=== PATIENT | female | born 1970 | race Hispanic/Latino ===

== ENCOUNTER 2017-09-06 12:36 | Inpatient (IN) | payer BC ==
[~2017-09-06] VITALS: Ht 157.5 cm; Wt 69.1 kg
[2017-09-06] MEDS ORDERED: SODIUM CHLORIDE 0.9% 1000ML 1,000 ML IV STA (12:39)
[2017-09-06] MEDS ORDERED: ONDANSETRON HCL INJ 2 MG/ML VIAL IV STA ×2 (12:39→12:58)
[2017-09-06] MEDS ORDERED: MORPHINE SULFATE 4 MG/ML SYR IV STA (12:39)
[2017-09-06] MEDS ORDERED: ASPIRIN 81 MG CHEW TAB PO ONE (12:45)
[2017-09-06] MEDS ORDERED: DIATRIZOATE MEGL/DIATRIZOA SOD 30 ML BTL PO ONE (12:55)
[2017-09-06] MEDS ORDERED: MORPHINE SULFATE 2 MG/ML SYR ONE (13:05)
[2017-09-06] MEDS ORDERED: DICYCLOMINE HCL 20 MG/2 ML VIAL IM ONE (13:15)
[2017-09-06 13:18] LABS: BASOPHILS % 0.2 % (0.0-1.0); EOSINOPHILS % 0.1 % (0.0-6.0); HEMATOCRIT 41.7 % (34.2-44.1); HEMOGLOBIN 13.2 g/dL (12.0-16.0); LYMPHOCYTES # (AUTO) 1.6 (1.0-3.2); LYMPHOCYTES % 9.9 % (18.0-39.1); MEAN CORPUSCULAR HEMOGLOBIN 25.8 pg (28-32); MEAN CORPUSCULAR HGB CONC 31.7 g/dL (31-35); MEAN CORPUSCULAR VOLUME 81.6 fL (81-99); MONOCYTES # (AUTO) 0.4 (0.2-0.8); MONOCYTES % 2.4 % (4.4-11.3); NEUTROPHILS # (AUTO) 14.1 (2.1-6.9); NEUTROPHILS % 87.1 % (38.7-80.0); PLATELET COUNT 582 x10e3/uL (140-360); RED BLOOD COUNT 5.11 x10e6/uL (3.6-5.1)
[2017-09-06 13:35] LABS: ALANINE AMINOTRANSFERASE 19 IU/L (0-55); ALBUMIN 4.3 g/dL (3.5-5.0); ALBUMIN/GLOBULIN RATIO 0.8 (0.8-2.0); ALKALINE PHOSPHATASE 102 IU/L (40-150); ANION GAP 22.4 mmol/L (8-16); BLOOD UREA NITROGEN 13 mg/dL (7-26); BUN/CREATININE RATIO 16 (6-25); CALCIUM 10.2 mg/dL (8.4-10.2); CARBON DIOXIDE 22 mmol/L (22-29); CHLORIDE 101 mmol/L (98-107); CREATINE KINASE 34 IU/L (29-168); CREATININE, SERUM 0.83 mg/dL (0.57-1.11); EST GLOMERULAR FILTRATION RATE > 60 ML/MIN (60-); GLUCOSE 157 mg/dL (74-118); POTASSIUM 3.4 mmol/L (3.5-5.1); SODIUM 142 mmol/L (136-145)
[2017-09-06 13:54] LABS: THYROID STIMULATING HORMONE 2.077 uIU/mL (0.350-4.940)
--- NOTE | 2017-09-06 14:25 | Diagnostic Imaging Report ---
PROCEDURE:CT ABDOMEN AND PELVIS WITH CONTRAST COMPARISON:None. INDICATIONS:ABDOMEN PAIN TECHNIQUE: Routine protocol Volumetric CT abdomen and pelvis after administration of 100 mL Omnipaque 300 contrast and positive enteric contrast. Multiplanar reformatted images. DLP: 541 FINDINGS: Clear lung bases. No pleural effusions. Normal heart size. Liver: Normal Gallbladder: Cholecystectomy Pancreas: Normal Spleen: Normal Adrenal glands: Normal Kidneys: Fjl-nnadp-lg-characterize subcentimeter hypodensities bilaterally. Otherwise, normal. Urinary bladder: Normal Uterus and adnexa: Hysterectomy Bowel: Distention of the large bowel up to the mid sigmoid colon; normal small bowel diameter.. 7 cm long mass at the mid sigmoid colon transition point (image 68, series 2). Distal sigmoid colon is decompressed. Peritoneum: Normal Vasculature: Normal Lymph nodes: Subcentimeter nodes at the sigmoid mesentery (image 63, series 2. Otherwise, no pelvic, mesenteric or retroperitoneal lymphadenopathy. Skeleton: Intact. No lytic or blastic lesions. Soft tissues: Normal. CONCLUSION: 1. 7 cm long mass in the mid sigmoid colon suspicious for primary colon malignancy. 2. Distention of the large bowel to the level of the mass suspicious for at least partial obstruction. 3. Subcentimeter lymph nodes along the sigmoid mesentery may represent local sierra metastasis. However, no evidence of distal metastasis. Dictated by: Ramu Kamara M.D. on 09/06/2017 at 14:34 Electronically approved by: Ramu Kamara M.D. on 09/06/2017 at 14:34
--- NOTE | 2017-09-06 14:25 | Diagnostic Imaging Report ---
PROCEDURE:CHEST SINGLE (NOT PORTABLE) TECHNIQUE:Portable AP chest INDICATION:Vomiting; diarrhea COMPARISON:None. FINDINGS: Lungs are clear and symmetrically inflated. No pleural effusions. Normal heart size, mediastinal contour and pulmonary vasculature. Cholecystectomy clips. Intact skeleton. CONCLUSION: Normal chest. Dictated by: Ramu Kamara M.D. on 09/06/2017 at 14:34 Electronically approved by: Ramu Kamara M.D. on 09/06/2017 at 14:34
[2017-09-06 15:33] LABS: BILIRUBIN,URINE NEGATIVE (NEGATIVE); KETONES,URINE 3+ (NEGATIVE); LEUKOCYTE ESTERASE ,URINE 1+ (NEGATIVE); NITRITE,URINE NEGATIVE (NEGATIVE); PROTEIN,URINE DIPSTICK NEGATIVE (NEGATIVE); URINE UROBILINOGEN 0.2 mg/dL (0.2 - 1)
[2017-09-06 15:41] LABS: CLARITY,URINE CLEAR (CLEAR); COLOR,URINE STRAW (YELLOW)
[2017-09-06 15:47] LABS: EPITHELIAL CELLS,URINE MANY /LPF
[2017-09-06 15:48] LABS: RBC,URINE 0-5 /HPF (0-5); WBC,URINE (MAN) 0-5 /HPF (0-5)
--- OUTSIDE RECORDS SUMMARY | 2017-09-06 16:24 | XMS REPORT ---
Author Author [facility] Address Unknown Phone Unavailable Care Team Providers Care Housefellow Name Role Phone QUINTON MATTHEWS Unavailable Unavailable Problems This patient has no known problems. Allergies, Adverse Reactions, Alerts This patient has no known allergies or adverse reactions. Medications This patient has no known medications. Results Test Description Test Time Test Comments Text Results Atomic Results Result Comments CT ABDOMEN/PELVIS W [place] [address] Patient Name: AILYN GAMEZ MR #: [id number] : 1970 Age/Sex: 46/F Req #: [id number] Adm Physician: Ordered by: PATRICIA CHEN PERFORMANCE MANAGER Report #: [id number] Location: ER Room/Bed: Procedure: [id number] CT/CT ABDOMEN/PELVIS W Exam Date: 09/06/17 Exam Time: 1400 REPORT STATUS: Signed PROCEDURE: CT ABDOMEN AND PELVIS WITH CONTRAST COMPARISON: None. INDICATIONS: ABDOMEN PAIN TECHNIQUE: Routine protocol Volumetric CT abdomen and pelvis after administration of 100 mL Omnipaque 300 contrast and positive enteric contrast. Multiplanar reformatted images. DLP: 541 FINDINGS: Clear lung bases. No pleural effusions. Normal heart size. Liver: Normal Gallbladder: Cholecystectomy Pancreas: Normal Spleen: Normal Adrenal glands: Normal Kidneys: Pmi-raqvd-lz-characterize subcentimeter hypodensities bilaterally. Otherwise, normal. Urinary bladder: Normal Uterus and adnexa: Hysterectomy Bowel: Distention of the large bowel up to the mid sigmoid colon; normal small bowel diameter.. 7 cm long mass at the mid sigmoid colon transition point (image 68, series 2). Distal sigmoid colon is decompressed. Peritoneum: Normal Vasculature: Normal Lymph nodes: Subcentimeter nodes at the sigmoid mesentery (image 63, series 2. Otherwise, no pelvic, mesenteric or retroperitoneal lymphadenopathy. Skeleton: Intact. No lytic or blastic lesions. Soft tissues: Normal. CONCLUSION: 1. 7 cm long mass in the mid sigmoid colon suspicious for primary colon malignancy. 2. Distention of the large bowel to the level of the mass suspicious for at least partial obstruction. 3. Subcentimeter lymph nodes along the sigmoid mesentery may represent local sierra metastasis. However, no evidence of distal metastasis. Dictated by: Keira Kamara M.D. on 09/06/2017 at 14:34 Electronically approved by: Keira Kamara M.D. on 09/06/2017 at 14:34 Dictated By: KEIRA KAMARA MD 1434 Transcribed By: TAMAR on 09/06/17 1434 COPY TO: PATRICIA CHEN PERFORMANCE MANAGER CHEST SINGLE (NOT PORTABLE) [place] [address] Patient Name: AILYN GAMEZ MR #: [id number] : 1970 Age/Sex: 46/F Req #: [id number] Adm Physician: Ordered by: PATRICIA CHEN PERFORMANCE MANAGER Report #: [id number] Location: ER Room/Bed: Procedure: [id number] DX/CHEST SINGLE (NOT PORTABLE) Exam Date: 09/06/17 Exam Time: 1350 REPORT STATUS: Signed PROCEDURE: CHEST SINGLE (NOT PORTABLE) TECHNIQUE: Portable AP chest INDICATION: Vomiting; diarrhea COMPARISON: None. FINDINGS: Lungs are clear and symmetrically inflated. No pleural effusions. Normal heart size, mediastinal contour and pulmonary vasculature. Cholecystectomy clips. Intact skeleton. CONCLUSION: Normal chest. Dictated by: Keira Kamara M.D. on 09/06/2017 at 14:34 Electronically approved by: Keira Kamara M.D. on 09/06/2017 at 14:34 Dictated By: KEIRA KAMARA MD 1434 Transcribed By: TAMAR on 09/06/17 1434 COPY TO: PATRICIA CHEN NP
[2017-09-06] MEDS ORDERED: BISACODYL 5 MG TAB EC PO NR (17:15)
[2017-09-06] MEDS ORDERED: PEG (High)/E-LYTE SOLN 4,000 ML BTL PO NR (17:15)
[2017-09-06] MEDS: SODIUM CHLORIDE 0.9% 1000ML 1,000 ML IV SCH ×2 (17:18→22:57)
[2017-09-06 17:19] VITALS: BP 118/78
[2017-09-06 17:34] VITALS: BP 118/78
[2017-09-06] MEDS: MORPHINE SULFATE 2 MG/ML SYR IV PRN ×2 (18:02→23:10)
[2017-09-06] MEDS: ONDANSETRON HCL INJ 2 MG/ML VIAL IV PRN ×2 (18:08→23:06)
[2017-09-06] MEDS ORDERED: POTASSIUM CHLORIDE 10MEQ/100ML 100 ML IV ONE (18:45)
[2017-09-06] MEDS ORDERED: DEXTROSE 5%/0.45% SOD CHL 1,000 ML IV ONE (18:45)
[2017-09-06] MEDS: FENTANYL 25 MCG/HR PATCH TOP SCH ×2 (18:45→21:40)
[2017-09-06] MEDS ORDERED: IOPAMIDOL 370 MG/ML 200 ML INFUS..BTL INJ ONE (18:50)
[2017-09-06] MEDS ORDERED: SODIUM CHLORIDE 0.9% 50ML 50 ML ONE (18:50)
[2017-09-06 19:10] LABS: % IRON SATURATION 10 % (15-50); AMYLASE 31 U/L (25-125); IRON 50 ug/dL (50-170); LIPASE 5 U/L (8-78); TOTAL IRON BINDING CAPACITY 497 ug/dL (261-478); TRANSFERRIN 355 mg/dL (180-382)
--- NOTE | 2017-09-06 19:38 | Consultation ---
DATE OF CONSULTATION: September 06, 2017 REFERRING PHYSICIAN: Dr. Rene. REASON FOR CONSULTATION: Partially obstructing sigmoid colon mass. HISTORY OF PRESENT ILLNESS: A 46-year-old very pleasant female who speaks Ukrainian only. She is a patient of my associate, Dr. Oneil. The patient was seen by Dr. Oneil in the office on 08/17/2017. At that time, she had just recovered from colonic diverticulitis. She was treated with antibiotics. She continued to complain about the lower abdominal discomfort. Therefore, outpatient colonoscopy was scheduled on 09/01/2017. Apparently, the patient for some reason cancelled the procedure. She did not reschedule the procedure. She ended up in the emergency room today at [facility] with lower abdominal discomfort. Denies any rectal bleeding. CT of the abdomen and pelvis done showed 7 cm partially obstructing sigmoid colon mass with pericolonic lymph nodes, no distinct metastasis. The CT scan was done with IV, without oral contrast. The patient denies any upper GI symptoms. REVIEW OF SYSTEMS: A 12-point system reviewed, symptomatology is limited to GI system. PAST MEDICAL HISTORY: Hypothyroidism, GERD, anemia of unclear etiology. PAST SURGICAL HISTORY: Cholecystectomy. FAMILY HISTORY: Negative for any GI or INTERPERSONAL COMMUNICATIONS PROFESSOR malignancies. Diabetes in the family. SOCIAL HISTORY: No smoking, alcohol or any illicit drug use. ALLERGIES: NONE. HOME MEDICATIONS: Ferrous sulfate, levothyroxine, Montelukast. PHYSICAL EXAMINATION VITAL SIGNS: Temperature 98, pulse 90, respirations 18, blood pressure 109/73, oxygen saturation 99% on room air. GENERAL: Not in any acute distress. HEENT: Moist mucous membrane. Anicteric sclerae. CVS: S1 and S2 regular. LUNGS: Bilaterally grossly clear. ABDOMEN: Obese, soft, lower quadrant tenderness on deep palpation without palpable mass or hernia. Positive bowel sounds. EXTREMITIES: Warm with no leg edema. LABORATORY DATA: Sodium 142, potassium 3.4, chloride 101, bicarb 22, BUN 13, creatinine 0.83, glucose 144. Liver enzymes normal. WBC 16.17, hemoglobin 13.2, hematocrit 41.7, platelet count 582,000. MCV 81.6. CT of the abdomen and pelvis with IV contrast only showed a 7 cm long mass in the mid sigmoid colon suspicious for primary colon malignancy. Distention of the large bowel to the level of mass suspicious for at least partial obstruction. A lymph node along the sigmoid which may represent sierra metastasis. However, no evidence of distant metastasis. The rest of the sigmoid colon appears normal. The patient is status post cholecystectomy. Elevated white count, cause unclear. This could be reactive. Urinalysis is negative. Chest x-ray is also negative. IMPRESSION: Partially obstructing sigmoid colon mass likely adenocarcinoma, less likely inflammatory mass. However, this needs a tissue diagnosis. Therefore, will put her on clear liquids, bowel prep tonight and colonoscopy tomorrow. My associate, Dr. Oneil, will be available to do her procedure tomorrow. I thank Dr. Rene for allowing me to participate in the care of this patient. Job#: [id number] GH JC
[2017-09-06 20:00] VITALS: BP 128/82
--- NOTE | 2017-09-06 20:13 | History and Physical ---
CLINICAL HISTORY: This is a 46-year-old woman, a patient of Dr. Baron, admitted via the emergency room because of possible sigmoid colon mass and colonic obstruction with severe abdominal pains. This patient apparently has had abdominal pains since January of this year. Initially, she was evaluated in [place], but recently she returned and went to see Dr. Baron and was referred to Dr. Tsang who performed a gynecological examination and apparently there was some positive findings. A CT scan of the abdomen and pelvis was then ordered, which showed pericolonic stranding suggestive of colitis. The patient was referred to Dr. Oneil who saw her 3 weeks ago and scheduled her for colonoscopy. However, she could not keep her fluid down, repeated vomiting. The colonoscopy had to be postponed and was rescheduled for today. In the meantime, she developed worsening abdominal pains, particularly with swallowing the cleansing fluids. She had repeated vomiting and pain was very severe. She finally came to the emergency room and repeat CT scan showed large colonic mass measuring 7 cm long in the sigmoid colon causing obstruction. There were some enlarged lymph nodes. Colon cancer has been suspected. She is being admitted for further evaluation and treatment. PAST MEDICAL HISTORY: Remarkable for the absence of diabetes, hypertension and hyperlipidemia, cardiovascular condition. PERSONAL/SOCIAL HISTORY: Denies drinking or smoking. FAMILY HISTORY: Noncontributory. PHYSICAL EXAMINATION: GENERAL: She is alert and coherent. VITAL SIGNS: Stable. CARDIOVASCULAR: Jugular veins are not distended. S1and S2 were regular. There are no appreciable murmurs. LUNGS: Clear. ABDOMEN: Soft. Bowel sounds are present. There is mild tenderness with deep palpation. EXTREMITIES: Show no cyanosis clubbing or edema. LABORATORY: The CT scan of the abdomen is as described. Chest x-ray was negative. White count was 16,000. Hemoglobin 13.2. Platelet count 582,000. Urinalysis shows 3+ ketones, trace amount of blood, 1+ leukocyte esterase. Serology: Influenza A was negative. Potassium 3.4. BUN 13, creatinine 0.83. Glucose 157. TSH 2.0. IMPRESSION: 1. Sigmoid colon obstruction due to malignant neoplasm or stool. 2. Severe abdominal pains. Amylase and lipase pending. 3. Unspecified gynecologic condition, apparently detected by physical examination. HCG was negative. 4. Mild hypokalemia. 5. Leukocytosis. RECOMMENDATIONS: GI consultation with Dr. Oneil. Surgical consultation by Dr. Jeffy Marcial. Possible enema since the patient is unable to tolerate cleansing liquids per oral. Job#: [id number] GH cc:RY BARON MD cc:JEFFY MARCIAL MD cc:CHARLIE ONEIL MD
[2017-09-06 20:30] VITALS: BP 128/82
--- NOTE | 2017-09-06 20:35 | Diagnostic Imaging Report ---
RADIOGRAPH(S) OF THE ABDOMEN AND PELVIS, 2 view(s) HISTORY: Abdominal pain COMPARISON: None available. FINDINGS: A diffuse paucity of bowel gas, but no specific evidence of obstruction or ileus. No definite urinary tract calcification. Metallic clips in the right upper quadrant of the abdomen are compatible with prior cholecystectomy. The bones are partially obscured by stool and overlying bowel gas. Radial opaque density within the urinary bladder, correlate for recent contrast administration. IMPRESSION: Nonobstructive bowel gas pattern. Signed by: Dr. Linwood Estrella D.O., M.M.M. on 09/06/2017 8:32 PM
[2017-09-07] VITALS (8 sets, daily range): BP systolic 98–126; BP diastolic 65–78
[2017-09-07 06:48] LABS: BASOPHILS % 0.2 % (0.0-1.0); EOSINOPHILS # (AUTO) 0.1 (0.0-0.4); EOSINOPHILS % 0.8 % (0.0-6.0); HEMATOCRIT 35.1 % (34.2-44.1); HEMOGLOBIN 10.9 g/dL (12.0-16.0); LYMPHOCYTES # (AUTO) 2.1 (1.0-3.2); LYMPHOCYTES % 23.3 % (18.0-39.1); MEAN CORPUSCULAR HEMOGLOBIN 26.1 pg (28-32); MEAN CORPUSCULAR HGB CONC 31.1 g/dL (31-35); MONOCYTES # (AUTO) 0.6 (0.2-0.8); MONOCYTES % 7.2 % (4.4-11.3); NEUTROPHILS # (AUTO) 6.1 (2.1-6.9); NEUTROPHILS % 68.3 % (38.7-80.0); PLATELET COUNT 433 x10e3/uL (140-360); RED BLOOD COUNT 4.18 x10e6/uL (3.6-5.1); RED CELL DISTRIBUTION WIDTH 15.5 % (11.7-14.4)
[2017-09-07] MEDS: SODIUM CHLORIDE 0.9% 1000ML 1,000 ML IV SCH (06:59)
[2017-09-07 07:12] LABS: ANION GAP 12.7 mmol/L (8-16); BLOOD UREA NITROGEN 12 mg/dL (7-26); BUN/CREATININE RATIO 16 (6-25); CALCIUM 8.8 mg/dL (8.4-10.2); CARBON DIOXIDE 27 mmol/L (22-29); CHLORIDE 105 mmol/L (98-107); CREATININE, SERUM 0.74 mg/dL (0.57-1.11); EST GLOMERULAR FILTRATION RATE > 60 ML/MIN (60-); GLUCOSE 118 mg/dL (74-118); POTASSIUM 3.7 mmol/L (3.5-5.1); SODIUM 141 mmol/L (136-145)
--- NOTE | 2017-09-07 09:58 | Diagnostic Imaging Report ---
PROCEDURE:ABDOMEN-1VIEW (KUB) TECHNIQUE:Portable AP abdomen INDICATION:NG tube placement COMPARISON:[facility], DX, ABDOMEN-1VIEW (KUB), 09/06/2017, 20:11. [facility], CT, CT ABDOMEN/PELVIS W, 09/06/2017, 14:00. FINDINGS: See conclusion. CONCLUSION: 1. Nasogastric tube tip at gastric antrum. 2. Mild dilation of the small and large bowel with dilute enteric contrast from the CT of September 06, 2017. 3. Clear lung bases. Dictated by: Ramu Kamara M.D. on 09/07/2017 at 10:08 Electronically approved by: Ramu Kamara M.D. on 09/07/2017 at 10:08
[2017-09-07] MEDS ORDERED: CEFOXITIN 2GM/ D5W 50ML 50 ML IV SCH (12:00)
[2017-09-07] MEDS: CEFOXITIN SODIUM 2 G/VIAL IV SCH ×2 (13:30→18:35)
[2017-09-07] MEDS: KCL 20MEQ/.9 SOD CHL 1,000 ML IV SCH (17:23)
[2017-09-07] MEDS ORDERED: SUCCINYLCHOLINE 200 MG/10 ML SYR ONE (18:25)
[2017-09-07] MEDS ORDERED: ONDANSETRON HCL INJ 2 MG/ML VIAL ONE (18:25)
[2017-09-07] MEDS ORDERED: ROCURONIUM BROMIDE 10 MG/ML 5ML VIAL ONE (18:25)
[2017-09-07] MEDS ORDERED: LIDOCAINE HCL 2% LOCAL INJ 5 ML SDV VIAL INJ ONE (18:25)
[2017-09-07] MEDS ORDERED: SEVOFLURANE INHAL SOLN 250 ML PEN BTL ONE (18:25)
[2017-09-07] MEDS ORDERED: PROPOFOL IV EMULSION 10 MG/ML 20 ML VIAL ONE (18:25)
[2017-09-07] MEDS ORDERED: FENTANYL CITRATE/PF 100MCG/2 ML INJ ONE (19:03)
[2017-09-07] MEDS ORDERED: MIDAZOLAM HCL 2 MG/2 ML VIAL ONE (19:03)
[2017-09-07] MEDS: ONDANSETRON HCL INJ 2 MG/ML VIAL IV PRN (22:21)
[2017-09-07] MEDS: MORPHINE SULFATE 2 MG/ML SYR IV PRN (22:22)
[2017-09-08] VITALS: BP 122/86
[2017-09-08] MEDS: CEFOXITIN SODIUM 2 G/VIAL IV SCH ×2 (00:30→05:21)
[2017-09-08] MEDS: KCL 20MEQ/.9 SOD CHL 1,000 ML IV SCH ×2 (01:08→09:30)
[2017-09-08 01:32] VITALS: BP 122/86
[2017-09-08 04:00] VITALS: BP 117/78
[2017-09-08 07:54] VITALS: BP 137/82
[2017-09-08] MEDS ORDERED: NEOSTIGMINE 1 MG/ML 10ML VIAL ONE (15:40)
[2017-09-08] MEDS ORDERED: NALOXONE HCL INJ 0.4 MG/ML AMP IV PRN (16:30)
[2017-09-08 16:40] LABS: BASOPHILS % 0.2 % (0.0-1.0); HEMATOCRIT 31.1 % (34.2-44.1); HEMOGLOBIN 9.4 g/dL (12.0-16.0); LYMPHOCYTES # (AUTO) 0.6 (1.0-3.2); LYMPHOCYTES % 4.2 % (18.0-39.1); MEAN CORPUSCULAR HEMOGLOBIN 26.3 pg (28-32); MEAN CORPUSCULAR HGB CONC 30.2 g/dL (31-35); MEAN CORPUSCULAR VOLUME 87.1 fL (81-99); MONOCYTES # (AUTO) 0.6 (0.2-0.8); MONOCYTES % 4.4 % (4.4-11.3); NEUTROPHILS # (AUTO) 12.3 (2.1-6.9); NEUTROPHILS % 90.8 % (38.7-80.0); PLATELET COUNT 388 x10e3/uL (140-360); RED BLOOD COUNT 3.57 x10e6/uL (3.6-5.1); RED CELL DISTRIBUTION WIDTH 15.1 % (11.7-14.4)
[2017-09-08] MEDS ORDERED: HYDROMORPHONE 0.2MG/ML-SOD CHL 30ML PCA SYRINGE IV ONE (17:21)
[2017-09-08] MEDS ORDERED: CEFOXITIN 1GM/ DEXTROSE 50ML 50 ML IV SCH (18:00)
--- NOTE | 2017-09-08 18:19 | Operative Report ---
DATE OF PROCEDURE: September 08, 2017 PREOPERATIVE DIAGNOSIS: Obstructing sigmoid colon carcinoma, status post hysterectomy, status post cholecystectomy. POSTOPERATIVE DIAGNOSIS: Obstructing sigmoid colon carcinoma, status post hysterectomy, status post cholecystectomy. PROCEDURE PERFORMED: Exploratory laparotomy and Severo procedure. ANESTHESIA: General endotracheal. ESTIMATED BLOOD LOSS: 600 ccs. DRAINS: None. COMPLICATIONS: None. INDICATIONS AND FINDINGS: This patient is a pleasant, 46-year-old female admitted with abdominal pain, crampy and nausea. Workup revealed a nearly totally obstructing sigmoid colon carcinoma . INTRAOPERATIVE FINDINGS: Obstructing sigmoid colon carcinoma about 8cms. The sigmoid colon was very redundant and it was looped across the pelvis into the right side and adherent to the peritoneal reflection .The liver was free of any tumor .The colon as far as intrabdominal palpation did not reveal any other lesions..The uterus was absent with both ovaries preserved.There was no evidence of tumor deposits in the ovaries. DESCRIPTION OF PROCEDURE: With the patient lying on the operating table in the supine position after administration of general endotracheal anesthesia, she was prepped and draped for exploratory laparotomy and colon resection and colostomy. An incision was made inferior to the umbilicus and extended to the pubic area along the midline and then the abdomen was entered along the midline. The findings noted above were seen. The colon was then mobilized at the white line of Toldt. The ureters were identified, both the right and left. The proximal colon was transected with the TRAE 75 stapler . The distal colon was transected at rectosigmoid area also with the same stapler. The blood supply to the colon was transected with the En-Seal cautery instrument.The inferior mesenteric vessels were doubly ligated with O silk .The tumor appeared to be stuck to the rt pelvis over the peritoneal reflection. This area of possible tumor involvement was then excised Then the proximal left colon was brought out through a cruciate incision in the rectus sheath in the left lower quadrant to be matured there.. We then closed the wound in the abdomen after copious irrigation of pelvis with a combination of 1 Vicryl for the posterior layer and peritoneum and then 1 PDS for the anterior fascial layer. The subcutaneous tissues were closed using 0 chromic and the skin was closed using a combination of 2-0 silk and heike. As each abdominal wall layer was closed, it was irrigated copiously with saline solution. The wound was isolated from the colostomy site where the colon had been exteriorized and then the colostomy was matured first with 4 quadrant stitches that included the mucosa, seromuscular and subcuticular plane and then the rest of the circumference of the colon in the 4 quadrants was matured using 2-0 Vicryl for the mucosa and subcuticular planes. A 2-1/4 inch colostomy bag was placed over the stoma and the wound was dressed with sterile dressing. The family was informed of the intraoperative findings. They are aware that this is a tumor that is large and locally invasive with possible penetration through the wall and into the peritoneum of the pelvis and peritoneal reflection. Job#: [id number] GH MTDD
[2017-09-08] MEDS ORDERED: LIDOCAINE HCL 2% LOCAL INJ 5 ML SDV VIAL INJ ONE (18:22)
[2017-09-08] MEDS ORDERED: SEVOFLURANE INHAL SOLN 250 ML PEN BTL ONE (18:22)
[2017-09-08] MEDS ORDERED: SUCCINYLCHOLINE 200 MG/10 ML SYR ONE (18:22)
[2017-09-08] MEDS ORDERED: ROCURONIUM BROMIDE 10 MG/ML 5ML VIAL ONE (18:22)
[2017-09-08] MEDS ORDERED: PROPOFOL IV EMULSION 10 MG/ML 20 ML VIAL ONE (18:22)
[2017-09-08] MEDS ORDERED: DEXAMETHASONE SOD PHOS INJ 4 MG/ML VIAL ONE (18:22)
[2017-09-08 18:30] VITALS: BP 136/83
[2017-09-08] MEDS ORDERED: FENTANYL CITRATE/PF 100MCG/2 ML INJ ONE (18:32)
[2017-09-08] MEDS ORDERED: MIDAZOLAM HCL 2 MG/2 ML VIAL ONE (18:32)
[2017-09-08] MEDS: SODIUM CHLORIDE 0.9% 250ML IRRIG IR SCH ×2 (19:22→20:30)
[2017-09-08] MEDS: CEFOXITIN SOD 1 GM VIAL IV SCH (19:51)
[2017-09-08] MEDS: DEXTROSE 5%/LACTATED RINGERS 1,000 ML IV SCH (19:51)
[2017-09-08] MEDS: PANTOPRAZOLE 40 MG 10ML VIAL IV SCH (19:51)
[2017-09-08] MEDS: MORPHINE SULFATE 2 MG/ML SYR IV PRN (19:52)
[2017-09-08] MEDS: ONDANSETRON HCL INJ 2 MG/ML VIAL IV PRN (19:52)
[2017-09-08 19:55] VITALS: BP 132/80
[2017-09-09] MEDS: MORPHINE SULFATE 2 MG/ML SYR IV PRN ×3 (00:18→20:11)
[2017-09-09] MEDS: ONDANSETRON HCL INJ 2 MG/ML VIAL IV PRN ×4 (00:18→23:55)
[2017-09-09 00:19] VITALS: BP 118/73
[2017-09-09] MEDS: SODIUM CHLORIDE 0.9% 250ML IRRIG IR SCH ×6 (00:30→20:30)
[2017-09-09] MEDS: CEFOXITIN SOD 1 GM VIAL IV SCH ×5 (01:03→20:11)
[2017-09-09] MEDS: HYDROMORPHONE 0.2MG/ML-SOD CHL 30ML PCA SYRINGE IV PRN ×2 (03:51→11:51)
[2017-09-09] MEDS: DEXTROSE 5%/LACTATED RINGERS 1,000 ML IV SCH ×4 (03:51→20:14)
[2017-09-09 05:34] VITALS: BP 102/65
[2017-09-09 07:10] VITALS: BP 106/74
[2017-09-09 07:11] LABS: BASOPHILS % 0.1 % (0.0-1.0); EOSINOPHILS % 0.5 % (0.0-6.0); HEMATOCRIT 31.2 % (34.2-44.1); HEMOGLOBIN 9.6 g/dL (12.0-16.0); LYMPHOCYTES # (AUTO) 1.5 (1.0-3.2); MEAN CORPUSCULAR HEMOGLOBIN 26.1 pg (28-32); MEAN CORPUSCULAR HGB CONC 30.8 g/dL (31-35); MEAN CORPUSCULAR VOLUME 84.8 fL (81-99); MONOCYTES # (AUTO) 0.7 (0.2-0.8); MONOCYTES % 7.7 % (4.4-11.3); NEUTROPHILS # (AUTO) 6.5 (2.1-6.9); NEUTROPHILS % 74.5 % (38.7-80.0); PLATELET COUNT 441 x10e3/uL (140-360); RED BLOOD COUNT 3.68 x10e6/uL (3.6-5.1); RED CELL DISTRIBUTION WIDTH 15.3 % (11.7-14.4)
[2017-09-09 07:32] LABS: ANION GAP 9.2 mmol/L (8-16); CALCIUM 8.3 mg/dL (8.4-10.2); CREATININE, SERUM 1.3 mg/dL (0.57-1.11); POTASSIUM 4.2 mmol/L (3.5-5.1)
[2017-09-09 16:02] VITALS: BP 111/68
[2017-09-09] MEDS ORDERED: ACETAMINOPHEN 325 MG SUPP PR PRN (16:15)
[2017-09-09] MEDS: PANTOPRAZOLE 40 MG 10ML VIAL IV SCH ×2 (18:00→20:11)
[2017-09-09] MEDS: FENTANYL 25 MCG/HR PATCH TOP SCH (20:11)
[2017-09-09 20:15] VITALS: BP 102/74
[2017-09-10] VITALS (11 sets, daily range): BP systolic 83–116; BP diastolic 58–72
[2017-09-10] MEDS: CEFOXITIN SOD 1 GM VIAL IV SCH ×5 (01:03→23:48)
[2017-09-10] MEDS: SODIUM CHLORIDE 0.9% 250ML IRRIG IR SCH ×6 (01:03→20:34)
[2017-09-10] MEDS: DEXTROSE 5%/LACTATED RINGERS 1,000 ML IV SCH ×3 (04:15→16:26)
[2017-09-10 07:56] LABS: BASOPHILS % 0.1 % (0.0-1.0); EOSINOPHILS # (AUTO) 0.3 (0.0-0.4); EOSINOPHILS % 3.6 % (0.0-6.0); HEMATOCRIT 25.5 % (34.2-44.1); LYMPHOCYTES # (AUTO) 1.1 (1.0-3.2); LYMPHOCYTES % 13.2 % (18.0-39.1); MEAN CORPUSCULAR HEMOGLOBIN 26.2 pg (28-32); MEAN CORPUSCULAR VOLUME 84.4 fL (81-99); MONOCYTES # (AUTO) 0.5 (0.2-0.8); MONOCYTES % 5.5 % (4.4-11.3); NEUTROPHILS # (AUTO) 6.3 (2.1-6.9); NEUTROPHILS % 77.2 % (38.7-80.0); PLATELET COUNT 350 x10e3/uL (140-360); RED BLOOD COUNT 3.02 x10e6/uL (3.6-5.1); RED CELL DISTRIBUTION WIDTH 15.7 % (11.7-14.4)
[2017-09-10 08:03] LABS: HEMOGLOBIN 7.9 g/dL (12.0-16.0)
[2017-09-10 08:43] LABS: ANION GAP 8.6 mmol/L (8-16); BLOOD UREA NITROGEN < 5 mg/dL (7-26); CALCIUM 7.8 mg/dL (8.4-10.2); CARBON DIOXIDE 29 mmol/L (22-29); CHLORIDE 107 mmol/L (98-107); CREATININE, SERUM 0.94 mg/dL (0.57-1.11); EST GLOMERULAR FILTRATION RATE > 60 ML/MIN (60-); GLUCOSE 137 mg/dL (74-118); POTASSIUM 3.6 mmol/L (3.5-5.1); SODIUM 141 mmol/L (136-145)
[2017-09-10 08:49] LABS: BUN/CREATININE RATIO 5 (6-25)
[2017-09-10] MEDS ORDERED: SODIUM CHLORIDE 0.9% 250ML 250 ML IV ONE (09:00)
[2017-09-10] MEDS: HYDROMORPHONE 0.2MG/ML-SOD CHL 30ML PCA SYRINGE IV PRN (09:10)
[2017-09-10] MEDS ORDERED: SODIUM CHLORIDE 0.9% 250ML 250 ML ONE (15:09)
[2017-09-10] MEDS: PANTOPRAZOLE 40 MG 10ML VIAL IV SCH (18:49)
[2017-09-10] MEDS ORDERED: FUROSEMIDE INJ 10 MG/ML 2 ML VIAL IV ONE (20:00)
[2017-09-10] MEDS ORDERED: FUROSEMIDE INJ 10 MG/ML 2 ML VIAL ONE (23:19)
[2017-09-11] MEDS: SODIUM CHLORIDE 0.9% 250ML IRRIG IR SCH ×3 (00:58→08:08)
[2017-09-11 04:21] VITALS: BP 105/67
[2017-09-11] MEDS: DEXTROSE 5%/LACTATED RINGERS 1,000 ML IV SCH ×4 (04:24→23:15)
[2017-09-11] MEDS: CEFOXITIN SOD 1 GM VIAL IV SCH ×3 (06:07→17:19)
[2017-09-11 06:25] LABS: BASOPHILS % 0.1 % (0.0-1.0); EOSINOPHILS # (AUTO) 0.5 (0.0-0.4); EOSINOPHILS % 6.9 % (0.0-6.0); HEMATOCRIT 30.5 % (34.2-44.1); HEMOGLOBIN 9.8 g/dL (12.0-16.0); LYMPHOCYTES # (AUTO) 1.3 (1.0-3.2); LYMPHOCYTES % 17.6 % (18.0-39.1); MEAN CORPUSCULAR HEMOGLOBIN 27.3 pg (28-32); MEAN CORPUSCULAR HGB CONC 32.1 g/dL (31-35); MONOCYTES # (AUTO) 0.5 (0.2-0.8); MONOCYTES % 6.5 % (4.4-11.3); NEUTROPHILS % 68.5 % (38.7-80.0); PLATELET COUNT 301 x10e3/uL (140-360); RED BLOOD COUNT 3.59 x10e6/uL (3.6-5.1); RED CELL DISTRIBUTION WIDTH 14.8 % (11.7-14.4)
[2017-09-11 06:41] LABS: ANION GAP 7.9 mmol/L (8-16); BLOOD UREA NITROGEN < 5 mg/dL (7-26); CARBON DIOXIDE 31 mmol/L (22-29); CHLORIDE 101 mmol/L (98-107); CREATININE, SERUM 0.56 mg/dL (0.57-1.11); EST GLOMERULAR FILTRATION RATE > 60 ML/MIN (60-); GLUCOSE 129 mg/dL (74-118); SODIUM 137 mmol/L (136-145)
[2017-09-11 06:51] LABS: BUN/CREATININE RATIO 9 (6-25)
[2017-09-11 06:52] LABS: POTASSIUM 2.9 mmol/L (3.5-5.1)
[2017-09-11 07:27] VITALS: BP 114/60
[2017-09-11] MEDS ORDERED: POTASSIUM CHLORIDE 20MEQ/100ML 300 ML IV ONE (07:30)
[2017-09-11] MEDS ORDERED: POTASSIUM CHLORIDE IV ONE (08:15)
[2017-09-11] MEDS ORDERED: SODIUM CHLORIDE 0.9% IV ONE (08:15)
[2017-09-11 12:30] VITALS: BP 112/71
[2017-09-11] MEDS: HYDROMORPHONE 0.2MG/ML-SOD CHL 30ML PCA SYRINGE IV PRN (12:47)
[2017-09-11] MEDS: PANTOPRAZOLE 40 MG 10ML VIAL IV SCH (17:19)
[2017-09-11 17:25] VITALS: BP 109/64
[2017-09-11 19:00] VITALS: BP 109/64
[2017-09-11 19:47] VITALS: BP 122/74
[2017-09-12] VITALS (7 sets, daily range): BP systolic 109–124; BP diastolic 59–82
[2017-09-12] MEDS: CEFOXITIN SOD 1 GM VIAL IV SCH ×4 (00:38→17:21)
[2017-09-12] MEDS: DEXTROSE 5%/LACTATED RINGERS 1,000 ML IV SCH ×2 (06:30→18:23)
[2017-09-12] MEDS ORDERED: FERROUS SULFAT325 MG PO (10:59)
[2017-09-12] MEDS ORDERED: Levothyroxine Sodium PO (10:59)
[2017-09-12] MEDS ORDERED: TYLENOL WITH C1 EACH PO (10:59)
[2017-09-12] MEDS ORDERED: ACETAMINOPHEN/CODEINE 300MG - 30MG TAB PO PRN (11:15)
[2017-09-12] MEDS ORDERED: POTASSIUM CHLORIDE 20 MEQ TAB CR PO ONE (11:30)
[2017-09-12] MEDS ORDERED: OYST-CAL-D 500MG TABLET PO ONE (11:30)
[2017-09-12] MEDS: PANTOPRAZOLE 40 MG 10ML VIAL IV SCH (17:21)
[2017-09-12] MEDS: HYDROCODONE/APAP 5MG-325MG TAB PO PRN ×2 (18:35→22:13)
[2017-09-13] MEDS: CEFOXITIN SOD 1 GM VIAL IV SCH ×3 (00:21→13:00)
[2017-09-13 01:11] VITALS: BP 118/71
[2017-09-13 05:22] VITALS: BP 120/66
[2017-09-13] MEDS: LEVOTHYROXINE SODIUM 88 MCG TAB PO SCH (06:30)
[2017-09-13 08:00] VITALS: BP 137/78
[2017-09-13] MEDS: FERROUS SULFATE 325 MG TAB PO SCH (10:00)
[2017-09-13] MEDS: ONDANSETRON HCL INJ 2 MG/ML VIAL IV PRN (11:00)
[2017-09-13 12:01] VITALS: BP 101/61
[2017-09-13 16:00] VITALS: BP 120/69
[2017-09-13] MEDS: PANTOPRAZOLE 40 MG 10ML VIAL IV SCH (18:00)
[2017-09-13 20:00] VITALS: BP 120/70
[2017-09-13] MEDS: HYDROMORPHONE 2MG/ML INJ IV PRN (20:09)
[2017-09-14] VITALS (7 sets, daily range): BP systolic 103–151; BP diastolic 52–64
[2017-09-14] MEDS: HYDROMORPHONE 2MG/ML INJ IV PRN ×3 (03:21→19:47)
[2017-09-14] MEDS: LEVOTHYROXINE SODIUM 88 MCG TAB PO SCH (06:11)
[2017-09-14] MEDS: FERROUS SULFATE 325 MG TAB PO SCH (10:00)
[2017-09-14] MEDS: ONDANSETRON HCL INJ 2 MG/ML VIAL IV PRN (13:56)
[2017-09-14] MEDS: DEXTROSE 5%/LACTATED RINGERS 1,000 ML IV SCH (17:00)
[2017-09-14] MEDS: PANTOPRAZOLE 40 MG 10ML VIAL IV SCH (18:01)
[2017-09-15] VITALS: BP 110/60
[2017-09-15] MEDS: HYDROMORPHONE 2MG/ML INJ IV PRN ×2 (00:24→23:07)
[2017-09-15 04:00] VITALS: BP 99/57
[2017-09-15] MEDS: LEVOTHYROXINE SODIUM 88 MCG TAB PO SCH (06:17)
[2017-09-15 08:19] VITALS: BP 110/66
[2017-09-15] MEDS: FERROUS SULFATE 325 MG TAB PO SCH (09:20)
[2017-09-15] MEDS: ONDANSETRON HCL INJ 2 MG/ML VIAL IV PRN (09:20)
[2017-09-15] MEDS: HYDROCODONE/APAP 5MG-325MG TAB PO PRN ×2 (11:08→17:57)
[2017-09-15 11:47] VITALS: BP 95/51
[2017-09-15 16:05] VITALS: BP 107/61
--- NOTE | 2017-09-15 16:28 | Discharge Summary ---
DISCHARGE DIAGNOSIS: Obstructing sigmoid colon carcinoma. PROCEDURES PERFORMED DURING THIS HOSPITALIZATION 1. On September 07, 2017, limited colonoscopy by Dr. Moscoso. 2. On September 08, 2017, exploratory laparotomy, Severo's procedure. CONSULTANTS 1. GI, Dr. Moscoso. 2. Internal medicine Dr Nicolas Melara HISTORY OF PRESENT ILLNESS AND HOSPITALIZATION COURSE: The patient is a pleasant 46-year-old female admitted with abdominal crampy pain and nausea. Workup revealed a totally nearly obstructing sigmoid colon carcinoma by colonoscopy performed by Dr. Moscoso on September 07, 2017. The patient's past medical history was unremarkable. Past surgical history was status post hysterectomy. The patient on September 08, 2017, underwent the previously described procedures with the findings of an obstructing sigmoid colon carcinoma. Pathology report revealed a T2 lesion with 12 negative nodes, stage I tumor. The patient was treated postoperatively in the ICU, later sent to the floor. She was treated with NG tube, IV antibiotics. When the colostomy became functional, the NG tube was removed and the patient was started on a diet, which she was tolerating well in the form of a soft GI diet the day of discharge. The patient underwent colostomy teaching by both myself, the nursing staff and the wound care [facility] staff. She was discharged home in satisfactory condition with a clean wound. Colostomy was working well. She was instructed to follow up in my office Monday following discharge. Discharge medications were Tylenol No. 3 one p.o. q.4-6 h. p.r.n. for pain. JACKELYN LOYD MD Job#: [id number] EV MTDD
[2017-09-15] MEDS: VANCOMYCIN 1GM/NS 250 ML 250 ML IV SCH (16:50)
[2017-09-15] MEDS: PANTOPRAZOLE 40 MG 10ML VIAL IV SCH (18:40)
[2017-09-15 20:00] VITALS: BP 96/53
[2017-09-16] VITALS: BP 116/55
[2017-09-16 04:00] VITALS: BP 104/55
[2017-09-16] MEDS: VANCOMYCIN 1GM/NS 250 ML 250 ML IV SCH ×2 (04:13→15:40)
[2017-09-16] MEDS: LEVOTHYROXINE SODIUM 88 MCG TAB PO SCH (06:03)
[2017-09-16 08:25] LABS: BASOPHILS % 0.3 % (0.0-1.0); EOSINOPHILS # (AUTO) 0.3 (0.0-0.4); EOSINOPHILS % 2.9 % (0.0-6.0); HEMATOCRIT 35.4 % (34.2-44.1); HEMOGLOBIN 11.1 g/dL (12.0-16.0); LYMPHOCYTES % 10.2 % (18.0-39.1); MEAN CORPUSCULAR HEMOGLOBIN 26.7 pg (28-32); MEAN CORPUSCULAR HGB CONC 31.4 g/dL (31-35); MEAN CORPUSCULAR VOLUME 85.3 fL (81-99); MONOCYTES # (AUTO) 0.6 (0.2-0.8); MONOCYTES % 6.7 % (4.4-11.3); NEUTROPHILS # (AUTO) 7.5 (2.1-6.9); NEUTROPHILS % 79.4 % (38.7-80.0); PLATELET COUNT 432 x10e3/uL (140-360); RED BLOOD COUNT 4.15 x10e6/uL (3.6-5.1); RED CELL DISTRIBUTION WIDTH 15.4 % (11.7-14.4)
[2017-09-16] MEDS: FERROUS SULFATE 325 MG TAB PO SCH (08:30)
[2017-09-16] MEDS: ONDANSETRON HCL INJ 2 MG/ML VIAL IV PRN (08:34)
[2017-09-16 08:36] VITALS: BP 120/67
[2017-09-16 11:59] VITALS: BP 121/59
[2017-09-16] MEDS: HYDROCODONE/APAP 5MG-325MG TAB PO PRN (12:45)
[2017-09-16 16:34] VITALS: BP 111/70
[2017-09-16] MEDS ORDERED: CLINDAMYCIN HC300 MG PO (17:49)
[2017-09-16] MEDS ORDERED: ZOFRAN ODT4 MG SL (17:49)
--- NOTE | 2017-09-21 14:41 | Consultation ---
DATE OF CONSULTATION: September 16, 2017 CONSULTATION TO: Dr. Bernard Marcial Vania Marin is a 46-year-old female who was referred to me postoperatively for an obstructing sigmoid colon cancer. The patient had seen Dr. Oneil in the office in August 2017. The patient had colonic diverticulitis. Subsequently, the patient was suggested a colonoscopy, and this was scheduled late in August 2017. However, the patient cancelled the procedure. She did not reschedule the procedure. She landed in the emergency room at [facility] complaining of abdominal pain. Subsequently, a CAT scan of the abdomen showed a 7 cm, partially obstructing, sigmoid colon mass and distension and subsequently was admitted for further evaluation and treatment. HISTORY OF PAST ILLNESS 1. History of hypothyroidism. 2. History of GERD. 3. History of cholecystectomy. 4. History of diverticulitis treated recently. SOCIAL HISTORY: Noncontributory. FAMILY HISTORY: Noncontributory. ALLERGIES: REPORTED NONE. MEDICATIONS AT THIS TIME 1. Ferrous sulfate. 2. Synthroid. 3. Montelukast. REVIEW OF SYSTEMS HEENT: Normal. CARDIAC: Normal. RESPIRATORY: History of occasional wheezing. GI: Now colon cancer. In the past diverticulitis. : Normal. MUSCULOSKELETAL: Normal. SKIN AND BREASTS: Normal. NEUROENDOCRINE: History of hypothyroidism. PHYSICAL EXAMINATION GENERAL: Moderately built female. No adenopathy. HEART: Within normal limits. LUNGS: Clear. BREASTS: Deferred at her request. ABDOMEN: Colostomy seen. RECTAL AND VAGINAL: Examination deferred. CENTRAL NERVOUS SYSTEM: Essentially normal. EXTREMITIES: Essentially normal. LABS: Investigations of interest show a hemoglobin on admission to be 13.2. This was on 09/06/2017. Hematocrit 41.7, MCHC low at 31.7, RDW high at 15. Subsequently after hydration, the hemoglobin dropped down to 9.4 on 09/08/2017. Indices also dropped with MCHC low at 30.2. The patient subsequently had a hemoglobin of 7.9 on 09/10/2017 and was transfused now on 09/16/2017 to 11.1. Chemistry showed a sodium 142, potassium 3.4, chloride 101, CO2 22, BUN 13, creatinine 0.8, glucose 157. Total protein reported very high at 9.4, albumin 4.3, globulin 5.1. These, however, have not been repeated again. The potassium had dropped down to 2.9 on 09/11/2017, subsequently was infused to 3.6. The patient had a CAT scan of the abdomen and pelvis on 09/06/2013. There was a 7-cm mass in the mid-sigmoid colon, distention of the large bowel to the level of the mass for obstruction, subcentimeter lymph nodes. The patient underwent laparotomy. Subsequently was found to have a sigmoid tumor, 6 x 4 x 2 cm, adenocarcinoma low grade. Margins of resection were clear. Lymphovascular invasion was not seen. No tumor deposits were identified. There were 12 pericolonic lymph nodes which were identified. None of them had any tumor. The tumor had invaded through the muscularis propria. This was reported to be T2b N0. CEA is reported low at 1.8. IMPRESSION 1. Obstructing 7-cm sigmoid colon mass, resected. 2. Iron deficiency anemia. 3. Hypothyroidism. 4. History of diverticulitis. 5. Colostomy. 6. Hyperproteinemia. 7. 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 PLAN, COMMENTS AND SUGGESTIONS: Even though no regional lymph nodes, this was an obstructing lesion. By Magallon's modification, this is a B2 colon cancer. The adjuvant chemotherapy is extended to people with perforation and also obstructing lesions apart from the classic C with regional lymph nodes. Hence, I suggest the patient to have fairly aggressive adjuvant chemotherapy with FOLFOX for 6 months. The colostomy can perhaps be reversed in 7 months from today as the patient will finish the systemic chemotherapy. This is a very potentially curable colon cancer. I have discussed this with the patient and reassured her that this is a fairly curable cancer except for the obstructing part she had. Thank you very much for allowing me to participate in management of this patient. Job#: [id number] cc:MD ODELL JACK MD RAMON A. PINEDA, MD
== END 2017-09-16 18:19 | disposition home or self-care (01) | DRG 330 ==
LOC: ER 12:36 → ERHOLD 16:21 → MED/SURG3 16:22 → IMCU 09-08 17:44 → MED/SURG 09-12 15:30
PROVIDERS: ADMIT Surgery; ATTEND Surgery
PROC: 0DBN8ZX Excision of Sigmoid Colon, Via Natural or Artificial Opening Endoscopic, Diagnostic (ICD-10-PCS; principal; 2017-09-07 10:11)
PROC: 0D1N0J4 Bypass Sigmoid Colon to Cutaneous with Synthetic Substitute, Open Approach (ICD-10-PCS; 2017-09-08)
PROC: 0WBN0ZX Excision of Female Perineum, Open Approach, Diagnostic (ICD-10-PCS; 2017-09-08)
PROC: 07BC0ZX Excision of Pelvis Lymphatic, Open Approach, Diagnostic (ICD-10-PCS; 2017-09-08)
PROC: 30233N1 Transfusion of Nonautologous Red Blood Cells into Peripheral Vein, Percutaneous Approach (ICD-10-PCS; 2017-09-08)
PROC: 0DTN0ZZ Resection of Sigmoid Colon, Open Approach (ICD-10-PCS; 2017-09-08 10:00)
DX: C18.7 Malignant neoplasm of sigmoid colon (principal); D62 Acute posthemorrhagic anemia; E88.09 Other disorders of plasma-protein metabolism, not elsewhere classified; E03.9 Hypothyroidism, unspecified; K21.9 Gastro-esophageal reflux disease without esophagitis; Z90.49 Acquired absence of other specified parts of digestive tract; R77.1 Abnormality of globulin; J45.909 Unspecified asthma, uncomplicated
CPT/HCPCS: 36415; 36430; 45380; 71045; 74018; 74177; 80048; 80053; 81001; 82150; 82378; 82550; 82553; 82948; 83540; 83690; 83880; 84132; 84443; 84466; 84484; 84702; 85025; 86850; 86900; 86920; 87040; 87086; 87400; 88305; 88309; 88342; 93005; 96361; 96376; 99284; J0694; J1100; J1940; J2001; J2250; J2270; J2405; J2710; J3370; J3480; J7030; J7040; J7050; J7120; P9016; Q9967

== ENCOUNTER → 2017-10-06 | Day surgery (SDC) | payer BC ==
[~2017-10-06] MED LIST: BACITRACIN 50,000 UNIT VIAL ONE; CEFAZOLIN SOD 1 GM VIAL ONE; CLINDAMYCIN HC300 MG PO; DEXAMETHASONE SOD PHOS INJ 4 MG/ML VIAL ONE; FENTANYL CITRATE/PF 100MCG/2 ML INJ ONE; FERROUS SULFAT325 MG PO; HEPARIN SOD (PORCINE) 5,000 UNIT/ML VIAL ONE; LIDOCAINE HCL 2% LOCAL INJ 5 ML SDV VIAL INJ ONE; Levothyroxine Sodium PO; MIDAZOLAM HCL 2 MG/2 ML VIAL ONE; ONDANSETRON HCL INJ 2 MG/ML VIAL ONE; PROPOFOL IV EMULSION 10 MG/ML 20 ML VIAL ONE; SEVOFLURANE INHAL SOLN 250 ML PEN BTL ONE; SODIUM CHLORIDE 0.9% 500ML 500 ML ONE; SODIUM CHLORIDE 0.9% 50ML 50 ML ONE; TYLENOL WITH C1 EACH PO; ZOFRAN ODT4 MG SL
--- OUTSIDE RECORDS SUMMARY | 2017-10-06 05:16 | XMS REPORT | Continuity of Care Document ---
Author Author [facility] Organization [facility] Address [address] [place] [address] Phone Unavailable Care Team Providers Care Cigar Bander Hand Name Role Phone RY UMANA MD PCP Insurance Providers Guarantor Josafat Gamez Address [address] [place] [address] Payer [facility] Policy Number [id number] Subscriber's Name Josafat Gamez Relationship 01 Group Number [id number] Group Name [employer] Effective Date 15 Advance Directives Directive Response Recorded Date/Time Does the patient have an advance directive? No 09/06/17 5:22pm If yes, is advance directive on file with [facility]? No 09/06/17 5:22pm If not on file with [facility] will patient provide a copy? No 09/06/17 5:22pm Do you have a Directive to Physician? No 09/06/17 2:02pm Do you have a Medical Power of Health Information Assistant? No 09/06/17 2:02pm Do you have an out of hospital Do Not Resuscitate Order? No 09/06/17 2:02pm Do you have any special needs we should be aware of? No 09/06/17 2:02pm Do you have a support person here with you today? Yes 09/06/17 2:02pm Did patient receive Notice of Privacy Practices? Yes 09/06/17 2:02pm Did patient receive patient rights and responsibilities? Yes 09/06/17 2:02pm Problems No problem information available. Medications Current Home Medications Medication Dose Units Route Directions Days Qty Instructions Start Date Acetaminophen With Codeine (Tylenol With Codeine #3 Tablet) 1 Each Tablet 300 Mg Oral Every 4 Hours for Pain 30 Tab 09/12/17 Clindamycin Hcl 300 Mg Capsule 300 Mg Oral Three Times A Day Ferrous Sulfate 325 Mg Tablet 325 Mg Oral Daily 90 Days 09/12/17 Levothyroxine Sodium 88 Mcg Tab 88 Mcg Oral Daily@06 90 Days Ondansetron (Zofran Odt) 4 Mg Tab.rapdis 4 Mg Sublingual Every 6 Hours as needed for Nausea Social History Social History Problem Response Recorded Date/Time Onset Date Status Hx Psychiatric Problems No 09/06/2017 5:22pm Not Applicable Not Applicable Hx Eating Disorder No 09/06/2017 5:22pm Not Applicable Not Applicable Hx Substance Use Disorder No 09/06/2017 5:22pm Not Applicable Not Applicable Hx Depression No 09/06/2017 5:22pm Not Applicable Not Applicable Hx Alcohol Use No 09/06/2017 5:22pm Not Applicable Not Applicable Hx Substance Use Treatment No 09/06/2017 5:22pm Not Applicable Not Applicable Hx Physical Abuse No 09/06/2017 5:22pm Not Applicable Not Applicable Smoking Status Start Date Stop Date Never Smoker Hospital Discharge Instructions No hospital discharge instruction information available. Plan of Care Discharge Date 09/16/17 6:19pm Disposition HOME, SELF-CARE Instructions/Education Provided Post Operative Pain Stitches and [place] Care Prescriptions See Medication Section Referrals RY UMANA MD (Internal Medicine) Order Date: 7-10 Days Entered Date: 09/12/2017 11:00am Address: [address] [place] [id number] MICHELLE LOYD MD (Surgery) Order Date: 7-10 Days Entered Date: 09/12/2017 11:00am Address: [address] [place] [address] [place] [id number] Additional Instructions/Education [facility] [phone] Functional Status Query Response Date Recorded Assistive Devices None September 06, 2017 5:34pm Ambulation Ability Standby Assistance September 06, 2017 5:34pm Toileting Ability Minimum Assistance September 16, 2017 1:27pm Allergies, Adverse Reactions, Alerts No known allergies. Immunizations No immunization information available. Vital Signs Acute Vital Signs Vital Response Date/Time Temperature (Fahrenheit) 95.3 degrees F (97.6 - 99.5) 09/16/2017 4:34pm Pulse Pulse Rate (adult) 77 bpm (60 - 90) 09/16/2017 4:34pm Respiratory Rate 18 bpm (12 - 24) 09/16/2017 4:34pm Blood Pressure 111/70 mm Hg 09/16/2017 4:34pm Height 5 ft 2 in 09/06/2017 5:22pm Weight 152.38 lb 09/15/2017 8:20am Body Mass Index 27.9 kg/m^2 09/15/2017 8:20am Results Laboratory Results Test Name Result Units Flags Reference Collection Date/Time Result Date/ Time Comments White Blood Count 9.45 x10e3/uL 4.8-10.8 09/16/2017 8:20am 09/16/2017 8 :27am Red Blood Count 4.15 x10e6/uL 3.6-5.1 09/16/2017 8:20am 09/16/2017 8: 27am Hemoglobin 11.1 g/dL L 12.0-16.0 09/16/2017 8:20am 09/16/2017 8:27am Hematocrit 35.4 % 34.2-44.1 09/16/2017 8:20am 09/16/2017 8:27am Mean Corpuscular Volume 85.3 fL 81-99 09/16/2017 8:20am 09/16/2017 8: 27am Mean Corpuscular Hemoglobin 26.7 pg L 28-32 09/16/2017 8:20am 2017 8:27am Mean Corpuscular Hemoglobin Concent 31.4 g/dL 31-35 09/16/2017 8:09/16/2017 8:27am Red Cell Distribution Width 15.4 % H 11.7-14.4 09/16/2017 8:202017 8:27am Platelet Count 432 x10e3/uL H 140-360 09/16/2017 8:09/16/2017 8: 27am Neutrophils (%) (Auto) 79.4 % 38.7-80.0 09/16/2017 8:09/16/2017 8: 27am Lymphocytes (%) (Auto) 10.2 % L 18.0-39.1 09/16/2017 8:09/16/2017 8 :27am Monocytes (%) (Auto) 6.7 % 4.4-11.3 09/16/2017 8:09/16/2017 8: 27am Eosinophils (%) (Auto) 2.9 % 0.0-6.0 09/16/2017 8:09/16/2017 8: 27am Basophils (%) (Auto) 0.3 % 0.0-1.0 09/16/2017 8:09/16/2017 8:27am IM GRANULOCYTES % 0.5 % 0.0-1.0 09/16/2017 8:09/16/2017 8:27am Neutrophils # (Auto) 7.5 H 2.1-6.9 09/16/2017 8:09/16/2017 8: 27am Lymphocytes # (Auto) 1.0 1.0-3.2 09/16/2017 8:am 09/16/2017 8:27am Monocytes # (Auto) 0.6 0.2-0.8 09/16/2017 8:09/16/2017 8:27am Eosinophils # (Auto) 0.3 0.0-0.4 09/16/2017 8:09/16/2017 8:27am Basophils # (Auto) 0.0 0.0-0.1 09/16/2017 8:2009/16/2017 8:27am Absolute Immature Granulocyte (auto 0.05 x10e3/uL 0-0.1 09/16/2017 8: 2009/16/2017 8:27am Urine Color STRAW YELLOW 09/06/2017 3:25pm 09/06/2017 3:41pm Urine Clarity CLEAR CLEAR 09/06/2017 3:pm 09/06/2017 3:41pm Urine Specific [place] 1.015 1.010-1.025 09/06/2017 3:pm 2017 3:41pm Urine pH 9 H 5 - 7 09/06/2017 3:pm 09/06/2017 3:41pm Urine Leukocyte Esterase 1+ H NEGATIVE 09/06/2017 3:pm 09/06/2017 3: 41pm Urine Nitrite NEGATIVE NEGATIVE 09/06/2017 3:pm 09/06/2017 3:41pm Urine Protein NEGATIVE NEGATIVE 09/06/2017 3:25pm 09/06/2017 3:41pm Urine Glucose (UA) NEGATIVE NEGATIVE 09/06/2017 3:pm 09/06/2017 3: 41pm Urine Ketones 3+ H NEGATIVE 09/06/2017 3:pm 09/06/2017 3:41pm Urine Urobilinogen 0.2 mg/dL 0.2 - 1 09/06/2017 3:pm 09/06/2017 3: 41pm Urine Bilirubin NEGATIVE NEGATIVE 09/06/2017 3:pm 09/06/2017 3: 41pm Urine Blood TRACE H NEGATIVE 09/06/2017 3:pm 09/06/2017 3:41pm Urine WBC 0-5 /HPF 0-5 09/06/2017 3:pm 09/06/2017 3:48pm Urine RBC 0-5 /HPF 0-5 09/06/2017 3:25pm 09/06/2017 3:48pm Urine Bacteria NONE /HPF NONE 09/06/2017 3:25pm 09/06/2017 3:48pm Urine Epithelial Cells MANY /LPF NONE 09/06/2017 3:25pm 09/06/2017 3: 48pm Sodium Level 137 mmol/L 136-145 09/11/2017 6:00am 09/11/2017 6:52am Potassium Level 3.6 mmol/L # 3.5-5.1 09/11/2017 8:10pm 09/11/2017 8:41pm Chloride Level 101 mmol/L 98-107 09/11/2017 6:00am 09/11/2017 6:52am Influenza Virus Types A,B Antigen NEGATIVE NEGATIVE 09/06/2017 12: 39pm 09/06/2017 1:36pm Carbon Dioxide Level 31 mmol/L H 22-29 09/11/2017 6:00am 09/11/2017 6: 52am Anion Gap 7.9 mmol/L L 8-16 09/11/2017 6:00am 09/11/2017 6:52am Blood Urea Nitrogen < 5 mg/dL L 7-26 09/11/2017 6:00am 09/11/2017 6: 52am Creatinine 0.56 mg/dL L 0.57-1.11 09/11/2017 6:00am 09/11/2017 6:52am BUN/Creatinine Ratio 9 6-25 09/11/2017 6:00am 09/11/2017 6:52am Estimat Glomerular Filtration Rate > 60 ML/MIN 60- 09/11/2017 6:00am 6:52am Ranges were taken from the National Kidney Disease Education Program and the National Kidney Foundation literature. Reference ranges: 60 or greater: Normal 16-59 (for 3 consecutive months): Chronic kidney disease 15 or less: Kidney failure Glucose Level 129 mg/dL H 74-118 09/11/2017 6:00am 09/11/2017 6:52am Calcium Level 8.0 mg/dL L 8.4-10.2 09/11/2017 6:00am 09/11/2017 6:52am Bedside Glucose 144 mg/dL H 70-120 09/06/2017 12:51pm 09/06/2017 12: 59pm Meter ID: [id number] Iron Level 50 ug/dL 50-170 09/06/2017 12:39pm 09/06/2017 7:13pm Total Iron Binding Capacity 497 ug/dL H 261-478 09/06/2017 12:39pm 09/06 7:13pm Percent Iron Saturation 10 % L 15-50 09/06/2017 12:39pm 09/06/2017 7: 13pm Transferrin 355 mg/dL 180-382 09/06/2017 12:39pm 09/06/2017 7:13pm Total Bilirubin 0.5 mg/dL 0.2-1.2 09/06/2017 12:39pm 09/06/2017 1:36pm Aspartate Amino Transf (AST/SGOT) 27 IU/L 5-34 09/06/2017 12:39pm 09/06 1:36pm Alanine Aminotransferase (ALT/SGPT) 19 IU/L 0-55 09/06/2017 12:39pm 1:36pm Total Protein 9.4 g/dL H 6.5-8.1 09/06/2017 12:39pm 09/06/2017 1:36pm Albumin 4.3 g/dL 3.5-5.0 09/06/2017 12:39pm 09/06/2017 1:36pm Globulin 5.1 g/dL H 2.3-3.5 09/06/2017 12:39pm 09/06/2017 1:36pm Albumin/Globulin Ratio 0.8 0.8-2.0 09/06/2017 12:39pm 09/06/2017 1: 36pm Alkaline Phosphatase 102 IU/L 40-150 09/06/2017 12:39pm 09/06/2017 1: 36pm B-Type Natriuretic Peptide 14.0 pg/mL 0-100 09/06/2017 12:39pm 2017 1:53pm Creatine Kinase 34 IU/L 29-168 09/06/2017 12:39pm 09/06/2017 1:36pm Creatine Kinase MB 0.70 ng/mL 0.00-5.00 09/06/2017 12:39pm 09/06/2017 1 :55pm Troponin I < 0.001 ng/mL 0-0.300 09/06/2017 12:39pm 09/06/2017 1:55pm Amylase Level 31 U/L 25-125 09/06/2017 12:39pm 09/06/2017 7:13pm Lipase 5 U/L L 8-78 09/06/2017 12:39pm 09/06/2017 7:13pm Thyroid Stimulating Hormone (TSH) 2.077 uIU/mL 0.350-4.940 09/06/2017 12 :39pm 09/06/2017 1:55pm Human Chorionic Gonadotropin, Qual NEGATIVE NEGATIVE 09/06/2017 12: 39pm 09/06/2017 1:36pm Carcinoembryonic Antigen 1.8 ng/mL 0.0-4.7 09/06/2017 12:39pm 2017 5:45am [place] ECLIA methodology Nonsmokers <3.9 Smokers <5.6 Performed at: [facility] [address] [id number] Fire Prevention Officer: Trung Mueller MD, Phone: [phone] Microbiology Results Procedure Source Organism/Result Collection Date/Time Result Date/Time Result Status Blood Culture Blood NO GROWTH AFTER 5 DAYS, FINAL REPORT 09/06/2017 8:50pm 09/11/2017 8:58pm Final Procedures Procedure Status Date Provider(s) Colonoscopy with biopsy Completed 09/07/17 CHARLIE QUIROGA MD Exploratory laparotomy Completed 09/08/17 JACKELYN LOYD MD Colon resection Completed 09/08/17 JACKELYN LOYD MD Computed tomography of abdomen and pelvis with contrast Active 09/06/17 PATRICIA CHEN TECHNICAL COORDINATOR X-ray of chest, single view Active 09/06/17 PATRICIA CHEN TECHNICAL COORDINATOR Encounters Encounter Location Arrival/Admit Date Discharge/Depart Date Attending Provider Discharged Inpatient [facility] 09/06/17 4:21pm 09/16/17 6:19pm JACKELYN LOYD MD
--- NOTE | 2017-10-06 09:21 | Operative Report ---
DATE OF PROCEDURE: October 06, 2017 PREOPERATIVE DIAGNOSIS: Colon carcinoma. POSTOPERATIVE DIAGNOSIS: Colon carcinoma. PROCEDURE PERFORMED: Placement of left Bard Port-A-Cath, left subclavian region. ANESTHESIA: General. ESTIMATED BLOOD LOSS: Minimal. DRAINS: None. COMPLICATIONS: None. INDICATIONS AND FINDINGS: Patient is a 46-year-old female, status post Severo procedure for obstructing colon carcinoma, admitted for Port-A-Cath placement for planned chemotherapy. INTRAOPERATIVE FINDINGS: Under fluoroscopic control, Bard Port-A-Cath was placed to lay in the superior vena cava right atrial junction under fluoroscopic control. DESCRIPTION OF THE PROCEDURE: With the patient lying on the operative table in the supine position, and after induction of general anesthesia, the patient was placed in the Trendelenburg position and then prepped and draped. The left subclavian vein was canalized under fluoroscopic control, and then the guidewire was placed under fluoroscopic control. The guidewire was going into the right side of the heart. At that point, we made an incision inferior to the entrance of the guidewire to the skin and created a pocket using blunt dissection to accommodate the port. The guidewire tract was then dilated. Then, the port was connected to the catheter using the self-locking mechanism. It was irrigated with heparinized solution and cut to a length to be able to lay in the area of the superior vena cava right atrial junction, which was about 16 cm, and then we thread the catheter through the peel-away sheath. Then, the Port-A-Cath system was secured to the pectoral fascia using 3 interrupted silk sutures to prevent migration. Fluoroscopic control again revealed the catheter tip to be in the superior vena cava right atrial junction. We irrigated the wound and then ascertained the hemostasis was absolute, then closed the wound in 2 layers using 3-0 Vicryl for the soft tissues and the skin was closed using 5-0 Vicryl. Sterile dressing was applied. The patient tolerated the procedure well, taken to the recovery room in stable condition. Job#: [id number]
--- NOTE | 2017-10-06 09:42 | Diagnostic Imaging Report ---
PROCEDURE: A single AP view of the chest. COMPARISON: None. INDICATIONS: POST VENOUS ACCESS PORT FINDINGS: Lines/tubes: A left subclavian Port-A-Cath has been placed. Tip overlies the SVC. Lungs: The lungs are well inflated and clear. There is no evidence of pneumonia or pulmonary edema. Pleura: There is no pleural effusion or pneumothorax. Heart and mediastinum: The heart and the mediastinum are unremarkable. Bones: No acute bony abnormality. IMPRESSION: 1. No acute cardiopulmonary disease. 2. Status post left chest Port-A-Cath placement. Markell Jimenez D.O. Dictated by: Markell Jimenez D.O. on 10/06/2017 at 9:42 Electronically approved by: Markell Jimenez D.O. on 10/06/2017 at 9:42
== END | disposition home or self-care (01) ==
LOC: OR 05:13
PROVIDERS: ATTEND Surgery
DX: C18.9 Malignant neoplasm of colon, unspecified (principal); D64.9 Anemia, unspecified; I99.9 Unspecified disorder of circulatory system; Z79.899 Other long term (current) drug therapy
CPT/HCPCS: 36561; 71045; 77001; C1751; J0690; J1100; J1644; J2001; J2250; J2405; J7040

== ENCOUNTER → 2017-10-17 | Outpatient (CLI) | payer BC ==
[~2017-10-17] MED LIST changes: -BACITRACIN 50,000 UNIT VIAL ONE; -CEFAZOLIN SOD 1 GM VIAL ONE; -DEXAMETHASONE SOD PHOS INJ 4 MG/ML VIAL ONE; -FENTANYL CITRATE/PF 100MCG/2 ML INJ ONE; -HEPARIN SOD (PORCINE) 5,000 UNIT/ML VIAL ONE; -LIDOCAINE HCL 2% LOCAL INJ 5 ML SDV VIAL INJ ONE; -MIDAZOLAM HCL 2 MG/2 ML VIAL ONE; -ONDANSETRON HCL INJ 2 MG/ML VIAL ONE; -PROPOFOL IV EMULSION 10 MG/ML 20 ML VIAL ONE; -SEVOFLURANE INHAL SOLN 250 ML PEN BTL ONE; -SODIUM CHLORIDE 0.9% 500ML 500 ML ONE; -SODIUM CHLORIDE 0.9% 50ML 50 ML ONE
== END ==
LOC: WCC 13:09
PROVIDERS: ATTEND Surgery
DX: L30.8 Other specified dermatitis (principal); Y83.3 Surgical operation with formation of external stoma as the cause of abnormal reaction of the patient, or of later complication, without mention of misadventure at the time of the procedure

== ENCOUNTER → 2017-10-20 | Outpatient (CLI) | payer BC | LOC: WCC 10:51 | PROVIDERS: ATTEND Surgery | DX: L30.8 Other specified dermatitis (principal); Y83.3 Surgical operation with formation of external stoma as the cause of abnormal reaction of the patient, or of later complication, without mention of misadventure at the time of the procedure ==

== ENCOUNTER → 2018-06-14 | Outpatient (CLI) | payer BC ==
[~2018-06-14] MED LIST changes: +LEVOTHYROXINE88 MCG PO
--- NOTE | 2018-06-27 08:47 | Diagnostic Imaging Report ---
#[id number] - [id number] #BILATERAL DIGITAL SCREENING MAMMOGRAM WITH CAD: 06/14/2018 CLINICAL: Routine screening. No prior exams were available for comparison. Current study contains 4 films. The tissue of both breasts is predominantly fatty. Current study was also evaluated with a Computer Aided Detection (CAD) system. There are benign calcifications and an intramammary node in the left breast. A port is noted on the left chest wall. No significant masses, calcifications, or other findings are seen in either breast. IMPRESSION: BENIGN There is no mammographic evidence of malignancy. A 1 year screening mammogram is recommended. The patient will be notified by letter of the results. Markell Jimenez Jr., D.O. cw/:06/26/2018 15:14:51 Experimental Rocket Sled Mechanic: Natalie HERNANDEZ)(M), [facility] letter sent: Normal Exam Mammogram BI-RADS: 2 Benign
== END ==
LOC: MAMMO 08:47
PROVIDERS: ATTEND Obstetrics & Gynecology
DX: Z12.31 Encounter for screening mammogram for malignant neoplasm of breast (principal)
CPT/HCPCS: 77067

== ENCOUNTER → 2018-06-20 | Outpatient (CLI) | payer BC ==
[~2018-06-20] MED LIST changes: +DIATRIZOATE MEGL/DIATRIZOA SOD 30 ML BTL PO ONE; +IOPAMIDOL 370 MG/ML 200 ML INFUS..BTL INJ ONE; +SODIUM CHLORIDE 0.9% 50ML 50 ML ONE
--- NOTE | 2018-06-20 11:07 | Diagnostic Imaging Report ---
PROCEDURE: CT ABDOMEN AND PELVIS WITH CONTRAST TECHNIQUE: The abdomen and pelvis were scanned utilizing a multidetector helical scanner from the diaphragm to the lesser trochanter after the IV administration of 100 cc of Isovue 370 and the oral administration of Gastrografin. Approximately 50 cc of Gastrografin was also administered by rectal tube. Coronal and sagittal multiplanar reformations were obtained. COMPARISON: 09/06/2017 INDICATIONS: COLON CANCER FINDINGS: LOWER THORAX: Normal. HEPATOBILIARY: Focal hypoattenuation along the falciform ligament is unchanged compatible with focal steatosis. Otherwise no focal hepatic lesion; no intrahepatic biliary ductal dilatation. The gallbladder has been removed, with metallic clips in the gallbladder fossa SPLEEN: Subcentimeter hypoattenuating lesion in the lower pole of the spleen is unchanged and remains too small to further characterize that may represent a small cyst. No splenomegaly. PANCREAS: No focal masses or ductal dilatation. ADRENALS: No adrenal nodules. KIDNEYS/URETERS: No hydronephrosis, stones, or solid mass lesions. PELVIC ORGANS/BLADDER: The urinary bladder is unremarkable. The uterus is not identified and has presumably been removed. No adnexal mass. PERITONEUM / RETROPERITONEUM: No ascites or pneumoperitoneum. LYMPH NODES: No pelvic sidewall or retroperitoneal lymphadenopathy. No enlarged mesenteric lymph nodes. VESSELS: The abdominal aorta, major branch vessels, and iliac arterial systems are well-visualized and patent. The common hepatic artery is again noted to be replaced to the SMA. Portal vein, splenic vein, and central superior mesenteric vein are patent. GI TRACT: Interval partial colectomy and left lower quadrant diverting colostomy the rectal stump and remnant colon show no evidence of obstruction or mass lesion. There is a 3.5 cm defect in the left rectus abdominus muscle with a large parastomal hernia containing several loops of small bowel without evidence of obstruction. Small hiatal hernia. Stomach and small bowel are otherwise unremarkable. Appendix is normal. BONES AND SOFT TISSUES: No osseous destructive lesions. Soft tissues as above. IMPRESSION: Interval resection of previously described sigmoid colon mass with left lower quadrant diverting colostomy. No evidence of residual tumor, locoregional, or distant metastases on this single phase examination. Large parastomal left lower quadrant hernia contains several loops of small bowel without evidence of obstruction. Dictated by: Srinivasan Marquez M.D. on 06/20/2018 at 11:16 Electronically approved by: Srinivasan Marquez M.D. on 06/20/2018 at 11:16
== END ==
LOC: CT 07:51
PROVIDERS: ATTEND Surgery
DX: C18.9 Malignant neoplasm of colon, unspecified (principal)
CPT/HCPCS: 74177; Q9663; Q9967

== ENCOUNTER 2018-07-25 05:22 | Inpatient (IN) | payer BC ==
[2018-07-20 09:24] LABS: BASOPHILS % 0.4 % (0.0-1.0); EOSINOPHILS # (AUTO) 0.3 (0.0-0.4); EOSINOPHILS % 5.4 % (0.0-6.0); HEMATOCRIT 38.4 % (34.2-44.1); HEMOGLOBIN 12.3 g/dL (12.0-16.0); LYMPHOCYTES # (AUTO) 1.7 (1.0-3.2); LYMPHOCYTES % 34.1 % (18.0-39.1); MEAN CORPUSCULAR HEMOGLOBIN 27.3 pg (28-32); MEAN CORPUSCULAR VOLUME 85.3 fL (81-99); MONOCYTES # (AUTO) 0.3 (0.2-0.8); MONOCYTES % 6.4 % (4.4-11.3); NEUTROPHILS # (AUTO) 2.7 (2.1-6.9); NEUTROPHILS % 53.5 % (38.7-80.0); PLATELET COUNT 274 x10e3/uL (140-360); RED CELL DISTRIBUTION WIDTH 12.9 % (11.7-14.4)
[2018-07-20 09:32] LABS: CLARITY,URINE CLEAR (CLEAR); COLOR,URINE YELLOW (YELLOW)
[2018-07-20 09:33] LABS: BILIRUBIN,URINE NEGATIVE (NEGATIVE); KETONES,URINE NEGATIVE (NEGATIVE); LEUKOCYTE ESTERASE ,URINE NEGATIVE (NEGATIVE); NITRITE,URINE NEGATIVE (NEGATIVE); PROTEIN,URINE DIPSTICK NEGATIVE (NEGATIVE); URINE UROBILINOGEN 0.2 mg/dL (0.2 - 1)
[2018-07-20 09:38] LABS: INR 0.87; PARTIAL THROMBOPLASTIN TIME 26.9 seconds (23.8-35.5); PROTHROMBIN TIME 12.7 seconds (11.9-14.5)
[2018-07-20 09:46] LABS: ALANINE AMINOTRANSFERASE 25 IU/L (0-55); ALBUMIN 3.9 g/dL (3.5-5.0); ALKALINE PHOSPHATASE 98 IU/L (40-150); ANION GAP 12.9 mmol/L (8-16); BLOOD UREA NITROGEN 10 mg/dL (7-26); BUN/CREATININE RATIO 14 (6-25); CALCIUM 9.5 mg/dL (8.4-10.2); CARBON DIOXIDE 27 mmol/L (22-29); CHLORIDE 103 mmol/L (98-107); CREATININE, SERUM 0.69 mg/dL (0.57-1.11); EST GLOMERULAR FILTRATION RATE > 60 ML/MIN (60-); GLUCOSE 103 mg/dL (74-118); POTASSIUM 3.9 mmol/L (3.5-5.1); SODIUM 139 mmol/L (136-145)
--- NOTE | 2018-07-20 10:34 | Diagnostic Imaging Report ---
PROCEDURE: Frontal and lateral views of the chest. COMPARISON: None. INDICATIONS: PRE OPERATIVE FOR COLON CANCER FINDINGS: Lines/tubes: Left chest wall chest port with catheter tip overlying the SVC is present. Lungs: The lungs are well inflated and clear. There is no evidence of pneumonia or pulmonary edema. Pleura: There is no pleural effusion or pneumothorax. Heart and mediastinum: The heart and the mediastinum are normal. Bones: No acute bony abnormality. IMPRESSION: 1. No acute cardiopulmonary disease. Markell Jimenez D.O. Dictated by: Markell Jimenez D.O. on 07/20/2018 at 10:45 Electronically approved by: Markell Jimenez D.O. on 07/20/2018 at 10:45
[~2018-07-25] VITALS: Ht 157.5 cm; Wt 72.6 kg
[2018-07-25] VITALS (18 sets, daily range): BP systolic 101–125; BP diastolic 61–78
[~2018-07-25 05:22] MED LIST changes: -DIATRIZOATE MEGL/DIATRIZOA SOD 30 ML BTL PO ONE; -IOPAMIDOL 370 MG/ML 200 ML INFUS..BTL INJ ONE; -SODIUM CHLORIDE 0.9% 50ML 50 ML ONE
[2018-07-25] MEDS ORDERED: SOD PHOSPHATE/SOD BIPHOSPHATE ENEMA 132 ML BTL PR ONE (05:52)
[2018-07-25] MEDS ORDERED: CEFOXITIN SODIUM 2 G in SODIUM CHLORIDE 0.9% 50ML 50 ML IV ONE (06:30)
[2018-07-25] MEDS ORDERED: MINERAL OIL STERILE 10ML VIAL ONE (07:42)
[2018-07-25] MEDS ORDERED: ACETAMINOPHEN 1000 MG/100 ML IV PRN (13:00)
[2018-07-25] MEDS ORDERED: HYDROMORPHONE 0.2MG/ML-SOD CHL 30ML PCA SYRINGE IV PRN (13:00)
[2018-07-25] MEDS ORDERED: ONDANSETRON HCL INJ 2 MG/ML VIAL IV PRN (13:00)
[2018-07-25] MEDS ORDERED: NALOXONE HCL INJ 0.4 MG/ML AMP IV PRN (13:00)
[2018-07-25] MEDS ORDERED: HYDROMORPHONE 2MG/ML 2 MG/ML ML ONE (13:17)
[2018-07-25] MEDS ORDERED: ONDANSETRON HCL INJ 2 MG/ML VIAL ONE ×2 (13:21→17:38)
[2018-07-25] MEDS: SODIUM CHLORIDE 0.9% 250ML IRRIG IR SCH ×3 (15:12→21:22)
--- NOTE | 2018-07-25 15:25 | Operative Report ---
DATE OF PROCEDURE: July 25, 2018 PREOPERATIVE DIAGNOSES 1. 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 2. Parastomal hernia. 3. Status post chemotherapy course following Severo's procedure. POSTOPERATIVE DIAGNOSES 1. 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 2. Parastomal hernia. 3. Status post chemotherapy course following Severo's procedure. PROCEDURES PERFORMED 1. Rigid proctosigmoidoscopy. 2. Takedown of colostomy. 3. Exploratory laparotomy. 4. Extensive lysis of adhesions. 5. Low anterior resection of the colon with stapled [id number] functional end-to-end anastomosis. 6. Repair of parastomal hernia. INVENTORY SPECIALIST MANAGER: Jeffy Marcial MD ESTIMATED BLOOD LOSS: 250 mL. DRAINS: Two Darius-Salter drains to the abdominal incision. One 1/4-inch Gemma drain to the colostomy site. COMPLICATIONS: None. INDICATIONS AND FINDINGS: The patient is a pleasant 47-year-old female who had undergone in August 2017 the previously described procedure for the previously described reasons. The patient received a chemotherapy course, and in the interim she had developed, following the emergency procedure for the obstructing carcinoma and chemotherapy, a parastomal hernia. Preoperatively the patient had a colonoscopy that revealed no lesions in the remainder of the colon. This was performed through the colostomy. She also had preoperatively a CT scan of the abdomen that revealed no lesions. Stump was about 18 cm long without any lesions. INTRAOPERATIVE FINDINGS: The patient had a large parastomal hernia containing small bowel. Rigid proctosigmoidoscopy revealed no lesions up to about 17 cm. There were adhesions from the previous laparotomy. DESCRIPTION OF PROCEDURE: With the patient lying on the operative table in the supine position, after administration of general anesthesia, she was placed in the lithotomy position. Rectal examination was then performed that revealed no masses. A rigid proctosigmoidoscope was introduced to about 17 cm, and there were no mucosal lesions. At this point then, she was placed in the supine position, prepped and draped for exploratory laparotomy and colostomy takedown. The colostomy site was isolated from the rest of the wound with 4 towels. Then the colostomy was then taken down until the abdominal cavity was entered. The colostomy stoma itself was transected with a TA60 stapler. The staple line was then removed. Then the colon was dumped into the abdominal cavity. The colostomy site was packed with Betadine-containing sponge. Then we entered the abdominal cavity through the previously placed midline incision, starting the dissection slightly superior to that where it was free of adhesions. Upon entering the abdomen, the findings noted above were seen. The colostomy was further mobilized. Multiple adhesions of the small bowel to the pelvis and to itself were lysed. We were able to expose the entire small bowel that was run from the ligament of Treitz to the cecum. There were no lesions. The appendix was normal. After we did that, we then mobilized the colonic stump of the distal sigmoid colon. Then we transected about an inch segment of it to prepare it for a [id number] anastomosis using the staple technique. The colostomy, after it was further mobilized, we transected the colostomy proximal to the previously placed staple line. Then it was prepared for anastomosis. We sent 3 specimens during the procedure. The 1st one was labeled the stoma site. The 2nd was labeled the distal margin, and the 3rd was labeled the proximal margin, all of which were clear from the previous Severo procedure. After we prepared both ends of the colon, we anastomosed the colon in a [id number] fashion, the left colon to the upper rectum by firing the TRAE-75 stapler, anastomosing the 2 sides of the bowel, and then we closed the rent in the corners of the colon with a TA60 stapler. We then reinforced the staple line with 3-0 silk, placed 2 stay sutures distal to the anastomosis to relieve any tension. We copiously irrigated the abdominal cavity. We checked the position of the NG tube, and it was found to be in the stomach. After we did that, after the sponge and instrument counts were pronounced correct multiple times, we closed the hernia. We closed the colostomy site in the left lower quadrant with interrupted #1 Vicryl stitches from the inside. Then we closed the wound beginning in the pubic area with a running #0 Vicryl that ended at about the level of the umbilicus. Superior to that, we could not get another peritoneal plane to close the wound, so beginning in the upper aspect of the abdomen, we closed the abdominal incision using a series of interrupted stitches with #1 PDS throughout the entire length of the incision. After we did that, we closed the anterior fascia of the colostomy site with interrupted #1 Prolene. We irrigated the wound. The sponge and instrument counts were pronounced correct again. Then we placed 2 Darius-Salter drains to drain the right and the left parts of the abdomen, and they were brought out through stab wound inferior to the incision and secured there with 2-0 silk. After we did that, we closed the soft tissues using a combination of #0 chromic and 2-0 Vicryl, and the skin was closed using a combination of heike and 2-0 silk. The colostomy site was closed likewise using #0 chromic for the deeper subcutaneous and fatty layers, and then the subcuticular plane was closed using 2-0 Vicryl also. The skin of the laparotomy incision as well as the colostomy site was closed using a combination of 2-0 silk and heike. Sterile dressing was applied including an abdominal binder. The patient tolerated the procedure well and was taken to the recovery room in stable condition. Job#: [id number]
[2018-07-25] MEDS: ONDANSETRON HCL INJ 2 MG/ML VIAL IV PRN (17:30)
[2018-07-25] MEDS ORDERED: PROPOFOL IV EMULSION 10 MG/ML 20 ML VIAL ONE (17:38)
[2018-07-25] MEDS ORDERED: ROCURONIUM BROMIDE 10 MG/ML 5ML VIAL ONE (17:38)
[2018-07-25] MEDS ORDERED: DEXAMETHASONE SOD PHOS INJ 4 MG/ML VIAL ONE (17:38)
[2018-07-25] MEDS ORDERED: KETOROLAC TROMETHAMINE 30 MG/ML VIAL ONE (17:38)
[2018-07-25] MEDS ORDERED: LIDOCAINE HCL 2% LOCAL INJ 5 ML SDV VIAL INJ ONE (17:38)
[2018-07-25] MEDS ORDERED: SEVOFLURANE INHAL SOLN 250 ML PEN BTL ONE (17:38)
[2018-07-25] MEDS ORDERED: ACETAMINOPHEN 1000 MG/100 ML IV ONE (17:38)
[2018-07-25] MEDS: DEXTROSE 5%/LACTATED RINGERS 1,000 ML IV SCH (17:53)
[2018-07-25] MEDS: CEFOXITIN 1GM/ NS 50ML 50 ML IV SCH (18:30)
[2018-07-25] MEDS: PROMETHAZINE HCL (IM) 25 MG/ML VIAL IV PRN (19:29)
[2018-07-25] MEDS ORDERED: MIDAZOLAM HCL 2 MG/2 ML VIAL ONE (19:30)
[2018-07-25] MEDS ORDERED: FENTANYL CITRATE/PF 100MCG/2 ML INJ ONE (19:30)
[2018-07-26] VITALS (18 sets, daily range): BP systolic 99–122; BP diastolic 58–78
[2018-07-26] MEDS: DEXTROSE 5%/LACTATED RINGERS 1,000 ML IV SCH ×3 (00:39→20:01)
[2018-07-26] MEDS: CEFOXITIN 1GM/ NS 50ML 50 ML IV SCH ×4 (00:42→20:01)
[2018-07-26] MEDS: SODIUM CHLORIDE 0.9% 250ML IRRIG IR SCH ×6 (02:05→22:50)
[2018-07-26 05:08] LABS: BASOPHILS % 0.1 % (0.0-1.0); HEMATOCRIT 32.4 % (34.2-44.1); HEMOGLOBIN 10.3 g/dL (12.0-16.0); LYMPHOCYTES # (AUTO) 1.2 (1.0-3.2); LYMPHOCYTES % 9.3 % (18.0-39.1); MEAN CORPUSCULAR HEMOGLOBIN 27.2 pg (28-32); MEAN CORPUSCULAR HGB CONC 31.8 g/dL (31-35); MEAN CORPUSCULAR VOLUME 85.7 fL (81-99); MONOCYTES # (AUTO) 1.4 (0.2-0.8); NEUTROPHILS # (AUTO) 10.2 (2.1-6.9); NEUTROPHILS % 78.5 % (38.7-80.0); PLATELET COUNT 325 x10e3/uL (140-360); RED BLOOD COUNT 3.78 x10e6/uL (3.6-5.1)
[2018-07-26 05:42] LABS: ANION GAP 11.9 mmol/L (8-16); BLOOD UREA NITROGEN 11 mg/dL (7-26); BUN/CREATININE RATIO 13 (6-25); CALCIUM 8.5 mg/dL (8.4-10.2); CARBON DIOXIDE 26 mmol/L (22-29); CHLORIDE 103 mmol/L (98-107); CREATININE, SERUM 0.85 mg/dL (0.57-1.11); EST GLOMERULAR FILTRATION RATE > 60 ML/MIN (60-); GLUCOSE 173 mg/dL (74-118); POTASSIUM 4.9 mmol/L (3.5-5.1); SODIUM 136 mmol/L (136-145)
--- NOTE | 2018-07-26 12:00 | NUR ---
Patient up with assistance to bedside chair and tolerated well. at bedside.
--- NOTE | 2018-07-26 13:10 | NUR ---
Dr. Talon Marcial here to see patient and she is sitting in chair and tolerating well. Denies any pain or discomfort. Respirations are even and unlabored. Abdominal dressing is dry and intact. Patient now requesting to go back to bed and will be assisted.
--- NOTE | 2018-07-26 17:17 | NUR ---
MILK PICKUP DRIVER syringe empty and new MILK PICKUP DRIVER syringe inserted with no basal rate as specified by Dr. Talon Marcial's order and patient informed of change. Respirations are even and unlabored. Says her pain is a "6" now and she proceeded to push her MILK PICKUP DRIVER button.
[2018-07-26] MEDS: PROMETHAZINE HCL (IM) 25 MG/ML VIAL IV PRN (20:02)
--- NOTE | 2018-07-26 22:44 | Diagnostic Imaging Report ---
ABDOMEN-1VIEW (KUB) Clinical history: NG tube placement Technique: AP view abdomen Comparison: 09/07/2017 Findings: NG tube tip and side port overlies the expected stomach. Drainage catheters and clips overlie the visualized pelvis. Nonobstructive bowel gas pattern. Impression: NG tube overlies the expected stomach. Signed by: Dr Jeni Caldwell MD on 07/26/2018 10:40 PM
[2018-07-27] VITALS (8 sets, daily range): BP systolic 106–125; BP diastolic 52–65
[2018-07-27] MEDS: CEFOXITIN 1GM/ NS 50ML 50 ML IV SCH ×5 (01:02→23:24)
[2018-07-27] MEDS: SODIUM CHLORIDE 0.9% 250ML IRRIG IR SCH ×4 (01:43→13:03)
[2018-07-27] MEDS: DEXTROSE 5%/LACTATED RINGERS 1,000 ML IV SCH ×3 (04:20→20:56)
[2018-07-27 05:42] LABS: BASOPHILS % 0.1 % (0.0-1.0); EOSINOPHILS # (AUTO) 0.1 (0.0-0.4); EOSINOPHILS % 0.8 % (0.0-6.0); HEMATOCRIT 25.2 % (34.2-44.1); LYMPHOCYTES # (AUTO) 1.7 (1.0-3.2); LYMPHOCYTES % 17.5 % (18.0-39.1); MEAN CORPUSCULAR HEMOGLOBIN 27.8 pg (28-32); MEAN CORPUSCULAR HGB CONC 31.7 g/dL (31-35); MEAN CORPUSCULAR VOLUME 87.5 fL (81-99); MONOCYTES # (AUTO) 0.7 (0.2-0.8); MONOCYTES % 7.7 % (4.4-11.3); NEUTROPHILS # (AUTO) 7.1 (2.1-6.9); NEUTROPHILS % 73.6 % (38.7-80.0); PLATELET COUNT 199 x10e3/uL (140-360); RED BLOOD COUNT 2.88 x10e6/uL (3.6-5.1); RED CELL DISTRIBUTION WIDTH 13.2 % (11.7-14.4)
[2018-07-27 06:04] LABS: ANION GAP 9.4 mmol/L (8-16); BLOOD UREA NITROGEN 5 mg/dL (7-26); BUN/CREATININE RATIO 7 (6-25); CALCIUM 8.1 mg/dL (8.4-10.2); CARBON DIOXIDE 27 mmol/L (22-29); CHLORIDE 103 mmol/L (98-107); CREATININE, SERUM 0.69 mg/dL (0.57-1.11); EST GLOMERULAR FILTRATION RATE > 60 ML/MIN (60-); GLUCOSE 120 mg/dL (74-118); POTASSIUM 4.4 mmol/L (3.5-5.1); SODIUM 135 mmol/L (136-145)
--- NOTE | 2018-07-27 07:02 | NUR ---
Received patient mid fowlers position, side rails upx2, call light within reach. AAOX4 to time, person, place, situation. Respirations even and unlabored. On Dilaudid BPM ARCHITECT. Denies any pain at this time. Instructed to use call light for assistance. Will continue to monitor.
[2018-07-27] MEDS: ONDANSETRON HCL INJ 2 MG/ML VIAL IV PRN (14:03)
--- NOTE | 2018-07-27 14:05 | NUR ---
NG tube and warner discontinued as ordered. Patient tolerated well
--- NOTE | 2018-07-27 16:49 | NUR ---
patient voided without discomfort
[2018-07-27] MEDS: HYDROMORPHONE 0.2MG/ML-SOD CHL 30ML PCA SYRINGE IV PRN (17:30)
--- NOTE | 2018-07-27 19:08 | NUR ---
WALKING ROUNDS PERFORMED, RECEIVED PT LAYING SEMI FOWLERS IN BED, AAOX3, RR EVEN AND NON-LABORED, ON RA. NO S/SX OF DISTRESS NOTED. TUBE BENDER HAND BUTTON WITHIN REACH. LEFT PT LAYING SEMI FOWLERS IN BED, BED IN LOW LOCKED POSITION, SIDE RAILS UPX2, CALL LIGHT AND PHONE WITHIN REACH.
--- NOTE | 2018-07-27 19:11 | NUR ---
Report given to oncoming nurse of patient's status. No s/s of acute distress noted.
[2018-07-28] VITALS (8 sets, daily range): BP systolic 103–111; BP diastolic 53–59
[2018-07-28] MEDS: HYDROMORPHONE 0.2MG/ML-SOD CHL 30ML PCA SYRINGE IV PRN ×2 (02:10→17:21)
[2018-07-28 05:44] LABS: BASOPHILS % 0.1 % (0.0-1.0); EOSINOPHILS # (AUTO) 0.3 (0.0-0.4); HEMOGLOBIN 7.5 g/dL (12.0-16.0); LYMPHOCYTES # (AUTO) 1.6 (1.0-3.2); LYMPHOCYTES % 20.7 % (18.0-39.1); MEAN CORPUSCULAR HEMOGLOBIN 27.3 pg (28-32); MEAN CORPUSCULAR HGB CONC 31.3 g/dL (31-35); MEAN CORPUSCULAR VOLUME 87.3 fL (81-99); MONOCYTES # (AUTO) 0.6 (0.2-0.8); MONOCYTES % 7.3 % (4.4-11.3); NEUTROPHILS # (AUTO) 5.1 (2.1-6.9); NEUTROPHILS % 67.5 % (38.7-80.0); PLATELET COUNT 211 x10e3/uL (140-360); RED BLOOD COUNT 2.75 x10e6/uL (3.6-5.1); RED CELL DISTRIBUTION WIDTH 13.3 % (11.7-14.4)
[2018-07-28] MEDS: DEXTROSE 5%/LACTATED RINGERS 1,000 ML IV SCH ×3 (05:44→21:20)
[2018-07-28] MEDS: CEFOXITIN 1GM/ NS 50ML 50 ML IV SCH ×4 (05:44→23:50)
[2018-07-28 06:10] LABS: ANION GAP 9.1 mmol/L (8-16); BLOOD UREA NITROGEN < 5 mg/dL (7-26); BUN/CREATININE RATIO 8 (6-25); CALCIUM 8.3 mg/dL (8.4-10.2); CARBON DIOXIDE 29 mmol/L (22-29); CHLORIDE 105 mmol/L (98-107); CREATININE, SERUM 0.65 mg/dL (0.57-1.11); EST GLOMERULAR FILTRATION RATE > 60 ML/MIN (60-); GLUCOSE 122 mg/dL (74-118); POTASSIUM 4.1 mmol/L (3.5-5.1); SODIUM 139 mmol/L (136-145)
--- NOTE | 2018-07-28 09:28 | NUR ---
Patient alert and responsive, remains NPO, VSS, KEVIN drains in place and draining, afebrile, OOB and ambulating hallway, slow steady gait, BILLET HEATER pump in place, will monitor
[2018-07-28] MEDS ORDERED: BISACODYL 10 MG SUPP PR ONE (11:00)
--- NOTE | 2018-07-28 14:25 | NUR ---
Patient had suppository this morning and had a large soft BM, BS positive and call light within reach.
--- NOTE | 2018-07-28 22:30 | NUR ---
Assisted pt to the restroom. Pt had small loose bm at this time. Denies any distress/discomfort
[2018-07-29] VITALS (7 sets, daily range): BP systolic 102–123; BP diastolic 57–69
[2018-07-29] MEDS: CEFOXITIN 1GM/ NS 50ML 50 ML IV SCH ×4 (05:34→23:50)
[2018-07-29] MEDS: DEXTROSE 5%/LACTATED RINGERS 1,000 ML IV SCH ×2 (10:28→16:57)
[2018-07-29] MEDS: HYDROMORPHONE 0.2MG/ML-SOD CHL 30ML PCA SYRINGE IV PRN (10:43)
[2018-07-29] MEDS: ONDANSETRON HCL INJ 2 MG/ML VIAL IV PRN (12:09)
--- NOTE | 2018-07-29 14:39 | NUR ---
Orders by Dr. Marcial for Full liquid diet and to d/c DIAL POLISHER pump Dilaudid and now on PRN pain meds, tolerated clear liquid lunch, some nausea but medicated as ordered, will monitor.
[2018-07-29] MEDS ORDERED: HYDROCODONE/APAP 7.5MG-325MG 1 EA TAB PO PRN (14:45)
[2018-07-29] MEDS: HYDROMORPHONE 2MG/ML 2 MG/ML ML IV PRN ×2 (16:57→21:22)
[2018-07-30] VITALS: BP 134/64
--- NOTE | 2018-07-30 02:25 | NUR ---
pt c/o itching to skin under some parts of the foam tape dsg. Noted some rash and blister under parts of tap dsg to right side abdomen. Applied Calazime protectant barrier cream. Will continue to monitor.
[2018-07-30] MEDS: HYDROMORPHONE 2MG/ML 2 MG/ML ML IV PRN ×2 (02:29→09:33)
[2018-07-30] MEDS: DEXTROSE 5%/LACTATED RINGERS 1,000 ML IV SCH (04:21)
[2018-07-30] MEDS: CEFOXITIN 1GM/ NS 50ML 50 ML IV SCH ×2 (06:03→12:00)
[2018-07-30 09:01] VITALS: BP 116/62
--- NOTE | 2018-07-30 09:33 | NUR ---
Rounds by surgeon and changed dressing to abdomen, removed KEVIN drains and new dressing applied, will advance patient to GI soft diet, pains well managed.
[2018-07-30] MEDS ORDERED: NEOMYCIN/POLYMYXIN/BACITRACIN 15 GM TUBE TOP PRN (09:45)
[2018-07-30 09:52] VITALS: BP 116/62
--- NOTE | 2018-07-30 10:23 | Discharge Summary ---
ADMITTING DIAGNOSES 1. 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 2. Parastomal hernia. DISCHARGE DIAGNOSES 1. 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 2. Parastomal hernia. PROCEDURES PERFORMED 1. Exploratory laparotomy. 2. Lysis of adhesions. 3. Takedown of colostomy. 4. Low anterior resection of the colon with [id number]-ed-rbqm stapled anastomosis. 5. Repair of parastomal hernia. HISTORY OF PRESENT ILLNESS AND HOSPITALIZATION COURSE: The patient is a very pleasant 47-year-old female who underwent in August of 2017 the previously described procedure. Postoperatively, she received chemotherapy course, and now was admitted for closure of colostomy. Preoperatively, the patient had colonoscopy by Dr. Oneil that revealed no lesions. Preoperatively, she also had a CT scan that revealed no liver lesions. HOSPITALIZATION COURSE: Following admission, the patient underwent the previously described procedure. Postoperatively, she was monitored in the ICU and then transferred to the floor where she remained stable. She was discharged home in satisfactory condition and tolerating a regular diet well on July 30, 2018. A couple of [place] drains, as well as a [place] drain were all removed. The wound was healing well. She was discharged home with no work tolerance. Advised no lifting more than 5 pounds. She will be followed up in my office on August 09, 2017, to remove the heike and the sutures from the wound. JACKELYN LOYD MD Job#: [id number] NM
--- NOTE | 2018-07-30 16:30 | NUR ---
Spoke with Dr. Marcial and orders to discharge patient, prescriptions given to patient by MD and contacts for f/u appt provided, discharge information given to patient and patient is discharged.
== END 2018-07-30 16:30 | disposition home or self-care (01) | DRG 330 ==
LOC: OR 05:22 → PACU V 12:54 → ICU 14:13 → MED/SURG 07-26 21:31
PROVIDERS: ADMIT Surgery; ATTEND Surgery
PROC: 0DNE0ZZ Release Large Intestine, Open Approach (ICD-10-PCS; 2018-07-25)
PROC: 0DBN0ZZ Excision of Sigmoid Colon, Open Approach (ICD-10-PCS; principal; 2018-07-25 07:30)
PROC: 0WQF0ZZ Repair Abdominal Wall, Open Approach (ICD-10-PCS; 2018-07-25 07:30)
DX: Z43.3 Encounter for attention to colostomy (principal); C18.7 Malignant neoplasm of sigmoid colon; K66.0 Peritoneal adhesions (postprocedural) (postinfection); K43.5 Parastomal hernia without obstruction or gangrene
CPT/HCPCS: 36415; 71046; 74018; 80048; 80053; 81003; 85025; 85610; 85730; 88304; 88307; 93005; 96360; J1100; J1885; J2001; J2250; J2405; J2550

== ENCOUNTER → 2019-06-20 | Outpatient (CLI) | payer BC | LOC: MAMMO 12:50 | PROVIDERS: ATTEND Internal Medicine | DX: Z12.31 Encounter for screening mammogram for malignant neoplasm of breast (principal) | CPT/HCPCS: 77067 ==

== ENCOUNTER → 2020-06-30 | Outpatient (CLI) | payer BC | LOC: MAMMO 14:08 | PROVIDERS: ATTEND Internal Medicine | DX: Z12.31 Encounter for screening mammogram for malignant neoplasm of breast (principal) | CPT/HCPCS: 77067 ==

== ENCOUNTER → 2021-07-13 | Outpatient (CLI) | payer BC | LOC: MAMMO 08:05 | PROVIDERS: ATTEND Internal Medicine | DX: Z12.31 Encounter for screening mammogram for malignant neoplasm of breast (principal) | CPT/HCPCS: 77067 ==

== ENCOUNTER → 2024-07-26 | Outpatient (REF) | payer OTHER | LOC: MAMMO 08:46 | PROVIDERS: ATTEND Internal Medicine | DX: Z12.31 Encounter for screening mammogram for malignant neoplasm of breast (principal) | CPT/HCPCS: 77067 ==